=== PATIENT | female | born 1940 | race Caucasian/White ===

== ENCOUNTER 2020-01-21 10:40 | Outpatient (CLI) | payer MEDICARE, SELFPAY ==
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
--- NOTE | ~2020-01-21 | MM_ITS ---
EXAMINATION: MM screening [facility] BI w [facility] HISTORY: Screening mammogram TECHNIQUE: Craniocaudal and mediolateral oblique 3-D tomosynthesis images were obtained and synthetic 2-D images were generated. CAD analysis was submitted and interpreted. COMPARISON: 09/21/2015, 12/01/2011 BREAST PARENCHYMAL COMPOSITION: There are scattered areas of fibroglandular density. FINDINGS: There is no evidence of suspicious mass, calcification, or architectural distortion to sugg est malignancy in either breast. There has been no suspicious interval change. IMPRESSION: 1. No mammographic evidence of malignancy. 2. Recommend routine screening mammography in one year. BI-RADS Category 1: Negative Reviewed, dictated and finalized at location A.
== END 2020-01-21 10:41 | disposition home or self-care (01) ==
LOC: ANHIMG 10:58
PROVIDERS: PCP Student in an Organized Health Care Education/Training Program; Visit Provider Student in an Organized Health Care Education/Training Program
DX: Z12.31 Encounter for screening mammogram for malignant neoplasm of breast (principal); Z78.0 Asymptomatic menopausal state; M85.89 Other specified disorders of bone density and structure, multiple sites
CPT/HCPCS: 77063; 77067; 77080

== ENCOUNTER 2021-09-26 16:29 | Outpatient (CLI) | payer MEDICARE, SELFPAY ==
--- NOTE | ~2021-09-26 | US_ITS ---
EXAMINATION: US soft tissue head and neck DATE: 09/26/2021 16:59 INDICATION: Lump in neck. TECHNIQUE: Multiple grayscale and Doppler ultrasound images of the neck were obtained. COMPARISON: Thyroid ultrasound 01/13/2007 FINDINGS: There is no abnormal mass or lymphadenopathy in the patient's areas of concern in the neck. IMPRESSION: 1. No abnormal mass or lymphadenopathy in the patient's areas of concern in the neck. Reviewed, dictated and finalized at location A.
== END 2021-09-26 16:30 | disposition home or self-care (01) ==
LOC: ANHIMG 16:31
PROVIDERS: PCP Student in an Organized Health Care Education/Training Program; Visit Provider Student in an Organized Health Care Education/Training Program
DX: R22.1 Localized swelling, mass and lump, neck (principal)
CPT/HCPCS: 76536

== ENCOUNTER 2021-12-07 14:02 | Emergency (ER) | payer OTHER, MEDICARE, SELFPAY ==
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
[2021-12-07 12:19] VITALS: BP 161/88; PULSE 93; RESP 18; TEMP 36.6; O2SAT 97
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
[2021-12-07 15:58] VITALS: BP 133/78; PULSE 80; RESP 16; O2SAT 100
== END 2021-12-07 16:02 | disposition home or self-care (01) ==
PROVIDERS: Emergency Provider Emergency Medicine; PCP Student in an Organized Health Care Education/Training Program
DX: S01.112A Laceration without foreign body of left eyelid and periocular area, initial encounter (principal); E78.00 Pure hypercholesterolemia, unspecified; M85.80 Other specified disorders of bone density and structure, unspecified site; Z87.442 Personal history of urinary calculi; E89.0 Postprocedural hypothyroidism; Z90.710 Acquired absence of both cervix and uterus; M47.812 Spondylosis without myelopathy or radiculopathy, cervical region; V43.52XA Car driver injured in collision with other type car in traffic accident, initial encounter
CPT/HCPCS: 12011; 70450; 72125; 99284

== ENCOUNTER 2022-02-05 14:18 | Inpatient (IN) | payer MEDICARE, SELFPAY ==
--- NOTE | ~2022-02-05 | XR_ITS ---
EXAM: XR knee LT 3V DATE: 02/05/2022 16:47 HISTORY: knee pain and swelling, HX ARTHRITIS, PAIN SINCE TODAY, NKI . COMPARISON: 07/17/2016. FINDINGS: Normal mineralization. No fracture or dislocation. No lytic or blastic lesion. Moderate tr icompartmental arthritis. Chondrocalcinosis. No erosion or periosteal change. Soft tissues within nor mal limits. Large volume joint fluid. IMPRESSION: Large left knee joint effusion. No acute osseous finding the left knee. Reviewed, dictated and finalized at location K. IMPRESSION: Large left knee joint effusion. No acute osseous finding the left k nee.
--- NOTE | ~2022-02-05 | XR_ITS ---
EXAMINATION: XR knee LT 3V DATE: 02/06/2022 13:23 INDICATION: Left knee pain. Arthritis. TECHNIQUE: 3 views of left knee including weightbearing views were obtained. COMPARISON: Left knee radiographs 02/05/22 FINDINGS: There is lateral subluxation of patella. No fracture. There is severe osteoarthritis of pat ellofemoral compartment and mild osteoarthritis of medial and lateral compartments. There is a small knee joint effusion with loose body. IMPRESSION: 1. Severe left knee osteoarthritis. 2. Small left knee joint effusion with loose body. Reviewed, dictated and finalized at location A.
--- NOTE | ~2022-02-05 | US_ITS ---
EXAMINATION: US venous doppler [facility] DATE: 02/05/2022 15:50 INDICATION: left leg pain, swelling, and warmth . TECHNIQUE: Grayscale images without and with compression and Doppler images of the left lower extremi ty veins were obtained. COMPARISON: None FINDINGS: The left common femoral vein, profunda femoral vein, femoral vein, popliteal vein, peroneal vein, and posterior tibial veins are patent. IMPRESSION: 1. Patent left lower extremity veins. No evidence of deep venous thrombosis. Reviewed, dictated and finalized at location K.
[2022-02-05 14:36] VITALS: BP 149/84; PULSE 99; RESP 16; TEMP 37.3; O2SAT 95
[2022-02-05 14:52] LABS: Basophils Percent Auto 0.4 % (0.2-1.2); Hematocrit 44.5 % (37.0-47.0); Hemoglobin 14.7 g/dL (12.0-15.0); Immature Granulocyte Absolute 0.05 K/mm3 (0.00-0.031); Immature Granulocyte Percent A 0.5 % (0-0.5); Lymphocytes Absolute Auto 0.64 K/mm3 (0.9-3.2); Lymphocytes Percent Auto 6.8 % (18.3-44.2); Mean Corpuscular Hemoglobin 30.8 pg (26-34); Mean Corpuscular Volume 93.1 fl (80-100); Mean Platelet Volume 10.3 fl (7.4-10.4); Monocytes Percent Auto 10.4 % (2.6-8.5); Neutrophils Absolute Auto 7.7 K/mm3 (1.3-6.7); Neutrophils Percent Auto 81.9 % (45.5-73.1); Platelet Count Result 249 k/mm3 (150-375); Red Blood Count 4.78 M/mm3 (4.2-5.4); Red Cell Distribution Width 13.7 % (11.5-14.5); White Blood Count 9.4 K/mm3 (4.5-10.0)
[2022-02-05 15:03] LABS: Anion Gap 15 mmol/L (8-16); Blood Urea Nitrogen 11 mg/dL (7-17); Calcium 8.7 mg/dL (8.4-10.2); Carbon Dioxide 28 mmol/L (22-30); Chloride 96 mmol/L (98-107); Estimated CRCL calculation 53 ml/min; Estimated Glomerular Filt Rate > 60; Glucose 115 mg/dL (65-110); Sodium 139 mmol/L (137-145)
[2022-02-05 15:04] LABS: INR 1.1; Partial Thromboplastin Time 30.8 SECONDS (22.3-36.8); Prothrombin Time 13.4 Seconds (11.1-14.7)
--- NOTE | 2022-02-05 16:34 | ED.EXTPRO ---
HPI - Extremity Problem General Chief complaint: Extremity Problem,Nontraumatic Stated complaint: left knee pain and swelling Time Seen by Provider: 02/05/22 15:22 History of Present Illness HPI Narrative: Patient is an 81-year-old female with a history of hyperlipidemia, hypothyroidism presenting with left knee pain. Patient states that she will intermittently have left knee pain but that it has actually been improved over the last several weeks. 2 days ago, she noticed that her left knee was swollen and has been increasingly painful. Patient states that anytime she stands on her left leg she has excruciating pain in her left knee. States that she has been unable to ambulate by herself at home. States that she lives alone and does not have anyone to assist her. She called her PCP today who became concerned for a blood clot and told her to come in for evaluation. She denies any fevers, chest pain, shortness of breath, cough, abdominal pain, nausea or vomiting, diarrhea. Denies any recent injuries. Related Data Home Medications Medication Instructions Recorded Confirmed amlodipine 2.5 mg tablet 2.5 mg PO DAILY 11/28/21 02/05/22 antiarthritic combination no.2 900 900 mg PO DAILY 11/28/21 02/05/22 mg tablet (glucosamine-chondroitin) biotin 1,000 mcg chewable tablet 1,000 mcg PO DAILY 11/28/21 02/05/22 calcitriol 0.25 mcg capsule 0.25 mcg PO DAILY 11/28/21 02/05/22 calcium carbonate 500 mg calcium 500 mg PO TID 11/28/21 02/05/22 (1,250 mg) tablet latanoprost 0.005 % eye drops 1 drp EACH EYE 11/28/21 02/05/22 levothyroxine 100 mcg capsule 100 mcg PO DAILY 11/28/21 02/05/22 raloxifene 60 mg tablet 60 mg PO DAILY 11/28/21 02/05/22 rosuvastatin 5 mg tablet 5 mg PO 11/28/21 02/05/22 Allergies Allergy/AdvReac Type Severity Reaction Status Date / Time penicillin G Allergy Severe THROAT Verified 02/05/22 17:02 SWELLING Sulfa (Sulfonamide Allergy Severe HIVES Verified 02/05/22 17:02 Antibiotics) Penicillins Allergy Unknown Unknown Verified 02/05/22 17:02 sulfamethizole Allergy Unknown Unknown Verified 02/05/22 17:02 sulfamethoxazole Allergy Unknown Hives Verified 02/05/22 17:02 [From Bactrim] trimethoprim Allergy Unknown Unknown Verified 02/05/22 17:02 Review of Systems Review of Systems: All systems reviewed & are unremarkable except as noted in HPI and below PMFSH Past Medical History Medical History (Updated 02/07/22 @ 16:13 by Sarahi Prabhakar APRN) Functional urinary incontinence Hair loss High cholesterol Hypertension Hypothyroidism Osteopenia Vision loss Surgical History Surgical History History of extraction of renal calculus History of hysterectomy History of thyroidectomy Family History Family History Other Family history of arthritis Family history of cardiovascular disease Family history of malignant neoplasm Heart disease Hypertension Social History Social History Smoking status: Never smoker Alcohol intake: never Substance use: never Gender identity (if verbalized by the patient): Male Spiritual care concerns: No Exam Narrative: GENERAL: Well-appearing, well-nourished, and in no acute distress. HEAD: Normocephalic, atraumatic. EYES: PERRLA and EOMI. ENT: Nares clear, no rhinorrhea or epistaxis. Mucous membranes moist. NECK: Supple. CHEST: Clear to auscultation. No respiratory distress. HEART: Regular rate and rhythm. No murmur heard. Normal peripheral pulses. ABDOMEN: Soft, nontender, nondistended, normal active bowel sounds. EXTREMITIES: Normal range of motion. Left knee swollen in comparison to the right knee. There is no overlying erythema. Range of motion intact. No tenderness. SKIN: Warm, dry, no rash. NEURO: No focal deficits. Alert and oriented x3. PSYCH: Normal mood an
[2022-02-05] MEDS: NAPROXEN SODIUM 220 MG TABLET 440 MG PO (17:02)
[2022-02-05 17:43] VITALS: BP 129/86; PULSE 97; RESP 20; O2SAT 96
--- NOTE | 2022-02-05 21:42 | PM.IMHP ---
H&P: HPI History of Present Illness Date/Time: 02/05/22 21:42 Chief Complaint: left knee pain Narrative: THIS IS AN 81-YEAR-OLD FEMALE WITH PAST MEDICAL HISTORY SIGNIFICANT FOR HYPOTHYROIDISM, HYPERTENSION, DEGENERATIVE JOINT DISEASE. PATIENT PRESENTS TO THE EMERGENCY ROOM DUE TO PAIN UPON BEARING WEIGHT AND LIMITED RANGE OF MOTION OF THE LEFT KNEE WITH SWELLING THAT HAS BEEN PROGRESSIVELY GETTING WORSE OVER THE COURSE OF 3 DAYS TO THE POINT THE PATIENT REQUIRED THE HELP OF 3 PEOPLE TO GET HER OUT OF THE HOUSE AND GO TO HER PRIMARY CARE PHYSICIAN WHO IN TURN SENT HER TO THE EMERGENCY ROOM. PATIENT HAS BEEN HER USUAL STATE OF HEALTH UP UNTIL THIS, DENIES ANY FEVERS, RIGORS, CHILLS, GENERALIZED BODY ACHES MUSCLE PAIN, WEIGHT LOSS, RASH, ABDOMINAL PAIN, DIARRHEA, NAUSEA, VOMITING. IN EMERGENCY ROOM PRELIMINARY WORKUP WAS SIGNIFICANT FOR X-RAY OF THE LEFT KNEE WAS REPORTED : IMPRESSION: Large left knee joint effusion. No acute osseous finding the left knee. IN EMERGENCY ROOM PATIENT UNDERWENT ARTHROCENTESIS OF ROUGHLY 50-60 CC OF YELLOW TRANSPARENT FLUID. AFTER THIS PATIENT WAS UNABLE TO BEAR WEIGHT ON THAT LEG AND IT WAS DECIDED FOR THE PATIENT TO PLACED UNDER OBSERVATION. PATIENT HAS BEEN ADMITTED FOR FURTHER EVALUATION MANAGEMENT AND TREATMENT. Review of Systems Review of Systems: LEFT KNEE PAIN, SWELLING, LIMITED RANGE OF MOTION, UNABLE TO BEAR WEIGHT ON IT. Constitutional: Constitutional: Denies chills, Denies fatigue, Denies fever(s), Denies malaise, Denies night sweats, Denies poor appetite and Denies weakness Eyes: Eyes: Denies change in vision ENT: Denies dysphagia, Denies vertigo, Denies dizziness, Denies odynophagia and Denies disequilibrium Cardiovascular: Cardiovascular: Denies chest pain, Denies irregular heart rhythm, Denies lightheadedness, Denies palpitations and Denies dyspnea on exertion Respiratory: Respiratory: Denies chest congestion, Denies cough, Denies excessive phlegm production, Denies pain on inspiration, Denies dyspnea, Denies dyspnea on exertion and Denies wheezing Gastrointestinal: Gastrointestinal: Denies abdominal pain, Denies dyspepsia, Denies heartburn, Denies diarrhea, Denies nausea and Denies vomiting Genitourinary: Genitourinary: Denies dysuria Musculoskeletal: Musculoskeletal: Reports abnormal gait, Reports deformity, Reports arthralgias, Reports joint swelling and Reports other ( LEFT KNEE) Integumentary/Breasts: Skin/Breast: Denies rash Neurologic: Denies vertigo, Denies dizziness, Denies focal weakness, Denies radicular pain and Denies Sensory deficit (Neuro) Psychiatric: Psychiatric: Reports no additional psychiatric complaints and Reports as per HPI Endocrine: Endocrine: Denies cold intolerance, Denies fatigue, Denies flushing, Denies heat intolerance, Denies polyphagia, Denies polydipsia and Denies palpitations Hematologic/Lymphatic: Hematologic/Lymphatic: Reports no additional hematologic/lymphatic complaints and Reports as per HPI Allergic/Immunologic: Allergic/Immunologic: Reports no additional allergic/immunologic complaints and Reports as per HPI PMFSH Past Medical History Medical History (Updated 02/06/22 @ 11:39 by Yasemin Freeman PA-C) Functional urinary incontinence Hair loss High cholesterol Hypertension Hypothyroidism Osteopenia Vision loss Surgical History Surgical History History of extraction of renal calculus History of hysterectomy History of thyroidectomy Family History Family History Other Family history of arthritis Family history of cardiovascular disease Family history of malignant neoplasm Heart disease Hypertension Social History Social History Smoking status: Never smoker Alcohol intake: never Substance use: never Gender identity (if verbalized by the patie
--- NOTE | 2022-02-05 23:20 | ADMGEN ---
This patient, Indigo Maurice, was admitted to 3 Med Surg Room 320-01. Patient/family oriented to hospital policies and general routines including ID bracelet, bed and alarms, visiting hours, pain management, procedures, bathroom and other care routines, personal items, smoking policy, room service/diet, and visiting hours. Information on how to activate the Rapid Response Team has been discussed. Patient/Family are encouraged to report perceived risks to care and to ask questions if they do not understand what they are told or what they should do.
[2022-02-05 23:48] VITALS: BMI 22.1
[2022-02-06 00:27] VITALS: BP 147/80; PULSE 78; RESP 16; TEMP 37.1; O2SAT 97
[2022-02-06] MEDS: methylPREDNISolone SOD SUCC 125 MG VIAL IV PUSH (01:49)
[2022-02-06] MEDS: LATANOPROST 0.005% OP SOLN 2.5 ML BTL 1 DROP EACH EYE ×2 (01:49→20:26)
[2022-02-06] MEDS: ROSUVASTATIN 5 MG TABLET PO ×2 (01:50→20:26)
[2022-02-06 05:55] VITALS: BP 125/81; PULSE 76; RESP 18; TEMP 36.7; O2SAT 97
[2022-02-06] MEDS: LEVOTHYROXINE SODIUM 100 MCG TABLET PO (06:37)
[2022-02-06 08:00] VITALS: O2SAT 98
[2022-02-06 10:05] LABS: Hematocrit 43.9 % (37.0-47.0); Mean Corpuscular HGB Conc 31.9 g/dl (32-36); Mean Corpuscular Hemoglobin 30.6 pg (26-34); Mean Corpuscular Volume 96.1 fl (80-100); Mean Platelet Volume 10.5 fl (7.4-10.4); Platelet Count Result 249 k/mm3 (150-375); Red Blood Count 4.57 M/mm3 (4.2-5.4); Red Cell Distribution Width 13.8 % (11.5-14.5); White Blood Count 5.6 K/mm3 (4.5-10.0)
[2022-02-06 10:17] LABS: Anion Gap 11 mmol/L (8-16); Blood Urea Nitrogen 17 mg/dL (7-17); Calcium 8.5 mg/dL (8.4-10.2); Carbon Dioxide 28 mmol/L (22-30); Chloride 99 mmol/L (98-107); Estimated CRCL calculation 61 ml/min; Estimated Glomerular Filt Rate > 60; Glucose 320 mg/dL (65-110); Potassium 3.7 mmol/L (3.4-5.0); Sodium 138 mmol/L (137-145)
[2022-02-06] MEDS: predniSONE 5 MG TABLET PO (10:33)
[2022-02-06] MEDS: calcitrioL 0.25 MCG CAPSULE PO (10:33)
[2022-02-06] MEDS: amLODIPine BESYLATE 2.5 MG TABLET PO (10:33)
[2022-02-06] MEDS: RALOXIFENE HCL (*CHEMO) 60 MG TABLET PO (10:34)
[2022-02-06] MEDS: ENOXAPARIN 40 MG/0.4 ML SYRINGE SUB-Q (10:34)
[2022-02-06] MEDS: CALCIUM CARBONATE (OSCAL) 500 MG TABLET PO ×3 (10:49→17:31)
--- NOTE | 2022-02-06 11:24 | PM.IMPN ---
Progress Note: A&P Assessment and Plan (1) Effusion, left knee: Code(s): M25.462 - Effusion, left knee Status: Acute Assessment and Plan: presented with left knee pain and swelling. imaging revealed large left knee joint effusion with no acute osseous findings aspiration of left knee bursa completed in ED with 70 cc clear yellow fluid appears that specimen was not sent for further lab testing, likely due to the fact that fluid was clear yellow making infection unlikely appreciate orthopedic surgery consultation started on Medrol Dosepak per Orthopedic surgery recommendation laboratory workup including uric acid, CRP, and rheumatoid factor pending supportive care. Analgesics available as needed PT/OT eval appreciated venous Doppler negative for DVT (2) Hypertension: Code(s): I10 - Essential (primary) hypertension Status: Acute Assessment and Plan: blood pressure reviewed and has been well controlled. Last BP 125/81 continue low-dose amlodipine monitor BP trends closely (3) Hypothyroidism: Code(s): E03.9 - Hypothyroidism, unspecified Status: Acute Assessment and Plan: patient is s/p thyroidectomy continue levothyroxine Subjective Date/time seen: 02/06/22 11:24 Interval history: date of service: 02/06/2022 Indigo Maurice is an 81-year-old female with a history of incontinence, hypertension, hyperlipidemia, hypothyroidism, mild dementia who is seen in follow-up for left knee effusion. She states that her pain had been so severe at home that she was not able to get up or walk around. She was scooting around on her right leg. she states that now she is feeling a bit more comfortable. States her knee is still very sore but she has had a huge improvement in her ability to move the leg. She is not able to localize where pain is, stating it just hurts all over her knee. She denies pain in her calf, thigh, or hip. Denies numbness or tingling of her extremities. No shortness breath, cough, chest pain, palpitations, dizziness, lightheadedness. denies urinary symptoms. Reports good appetite. Review of Systems Review of Systems: All systems reviewed & are unremarkable except as noted in HPI and below Exam Narrative: General: Well-nourished, well-appearing 81-year-old female, sitting up in bed, comfortable, NARD Neuro: awake, alert and oriented x4, speech clear, no focal neuro deficits noted HEENMT: normocephalic, atraumatic, EOMI, sclerae anicteric Respiratory: clear to auscultation bilaterally, nonlabored breathing Cardio: regular rate, regular rhythm with S1-S2 Abdomen: nondistended, normoactive bowel sounds, soft, nontender to palpation Extremities: left knee wrapped in Tod bandage, left calf with 1+ edema, able to passively bend the knee 30?, bilateral varicose veins, right lower extremity without edema, no erythema, no tenderness to palpation, DP pulses 2+ bilaterally, able to wiggle toes bilaterally Skin: no rashes or lesions, warm and dry Psych: appropriate mood and affect, judgment and insight intact Objective Data Vital Signs Vital Signs: Vital Signs - 24 hr 02/05/22 14:36 02/05/22 17:43 02/06/22 00:27 Temperature 99.1 F 98.7 F Pulse Rate 99 97 78 Respiratory Rate 16 20 16 Blood Pressure 149/84 H 129/86 147/80 H Pulse Oximetry 95 96 97 Oxygen Delivery Room Air 02/06/22 05:55 02/06/22 08:00 Temperature 98.0 F Pulse Rate 76 Respiratory Rate 18 Blood Pressure 125/81 Pulse Oximetry 97 98 Oxygen Delivery Room Air Intake/Output Intake/Output: Intake & Output 02/03/22 02/04/22 02/05/22 02/06/22 23:59 23:59 23:59 23:59 Intake Total 588 Balance 588 Meds/Results Medications: Active Medications Generic Name Dose Route Start Last Admin Trade Name Freq PRN Reason Stop Dose Admin Amlodipine Besylate 2.5 mg 02/06/22 09:00 02/06/22 10:33 Amlodipine Besylate 2.
[2022-02-06 12:01] LABS: Rheumatoid Factor < 12.0 IU/ML (<12)
[2022-02-06] MEDS: methylPREDNISolone (MEDROL) DOSEPACK 4 MG TABLETS PO ×4 (12:24→20:26)
[2022-02-06 12:39] LABS: CRP 17.2 mg/dL (<1.0)
[2022-02-06 12:51] LABS: Erythrocyte Sedimentation Rate 35 mm/hr (0-20)
[2022-02-06 14:00] VITALS: BP 124/68; PULSE 85; RESP 20; TEMP 36.2; O2SAT 95
[2022-02-06 14:06] LABS: Uric Acid 4.2 mg/dL (2.5-7.5)
[2022-02-06 21:44] VITALS: BP 156/83; PULSE 78; RESP 18; TEMP 36.2; O2SAT 96
[2022-02-07 05:46] LABS: Hematocrit 40.4 % (37.0-47.0); Hemoglobin 13.2 g/dL (12.0-15.0); Mean Corpuscular HGB Conc 32.7 g/dl (32-36); Mean Corpuscular Hemoglobin 30.6 pg (26-34); Mean Corpuscular Volume 93.7 fl (80-100); Platelet Count Result 279 k/mm3 (150-375); Red Blood Count 4.31 M/mm3 (4.2-5.4); Red Cell Distribution Width 13.7 % (11.5-14.5); White Blood Count 13.8 K/mm3 (4.5-10.0)
[2022-02-07 05:52] VITALS: BP 149/77; PULSE 85; RESP 18; TEMP 36.2; O2SAT 96
[2022-02-07 06:00] LABS: Anion Gap 10 mmol/L (8-16); Blood Urea Nitrogen 20 mg/dL (7-17); Calcium 8.6 mg/dL (8.4-10.2); Carbon Dioxide 26 mmol/L (22-30); Chloride 100 mmol/L (98-107); Estimated CRCL calculation 61 ml/min; Estimated Glomerular Filt Rate > 60; Glucose 134 mg/dL (65-110); Potassium 3.8 mmol/L (3.4-5.0); Sodium 136 mmol/L (137-145)
[2022-02-07] MEDS: methylPREDNISolone (MEDROL) DOSEPACK 4 MG TABLETS PO ×4 (06:06→20:03)
[2022-02-07] MEDS: LEVOTHYROXINE SODIUM 100 MCG TABLET PO (06:06)
[2022-02-07] MEDS: LIDOCAINE HCL 1% LOCAL INJ 20 ML VIAL 4 ML INFILTRATE (07:00)
[2022-02-07] MEDS: BETAMETHASONE SOD PHOS/ACETATE 30 MG/5 ML VIAL 12 MG IM (07:00)
--- NOTE | 2022-02-07 07:12 | PM.CNOR ---
Assessment and Plan Assessment and plan (1) Left knee DJD: Code(s): M17.12 - Unilateral primary osteoarthritis, left knee Status: Acute (2) Effusion, left knee: Code(s): M25.462 - Effusion, left knee Status: Acute Assessment and Plan: This patient is a 81-year-old female was admitted the night before last for intractable left knee pain. She has a known history of osteoarthritis in the left knee. She saw Dr. Xiong on 11/25/2021 about her knee and his office and his office note is on the computer to review and he offered her a cortisone shot at that time which she declined. She had been going to physical therapy for her back and had a little bit of therapy for her knee as well. She has a history of mild episodes of soreness in her left knee off and on over many years. Her x-rays that we obtained yesterday showed on the sunrise you that she has rather advanced [id number] patellofemoral arthritis. Medial compartment shows minimal narrowing on the weight-bearing view. She developed severe pain Thursday. For the 3 or 4 weeks prior to the onset of this severe pain Thursday her left knee had been better than she can recall essentially perfect. On Thursday she developed a stomach flu and was very inactive. Thursday she did not do any activities out of the ordinary and she went to the door wants to answer of the door and other than this also was very inactive. Because of the severe pain in her left knee she went to the emergency room the night before last and in the emergency room the left knee was aspirated of 70 cc as described in the emergency room note and the fluid was clear initially and then sanguinous. Culture and synovial fluid analysis tests were ordered in the computer but the results indicate that the specimen was never collected so this is a mystery as to what happened to the culture fluid. One possible explanation would be that the fluid was simply not sent because it appeared so clear to the practitioner aspirating the knee but that is just a gas and I have no way to verify that as there is no discussion of what was done with the fluid specifically in the emergency room note. It was decided that she would be admitted because she had been having so much pain. Her white count was normal she was afebrile. I ordered a C-reactive protein and sedimentation rate yesterday and the C-reactive protein was very elevated at 17.2 normal being less than 1 and this is more than 10 times the normal rate which is highly suspicious for infection. Sedimentation rate was only mildly elevated at 35. Her white count this morning was 13.8. That might be in part related to the fact that she was started on a Medrol Dosepak yesterday. Her white count yesterday was only 5.6. She has been afebrile here in the hospital but she states she felt cold all day yesterday and today she feels hot. She has had no chills. On exam today she has a evkr-sy-snxhtkcd effusion left knee without warmth. Her range of motion was 5-120 degrees and she had no pain in the left knee with this range of motion which she indicates was vastly better than when she came in on Thursday evening night before last. She does have swelling in the left leg. She had a tight 4 in Tod wrap around the left knee only and I think the swelling her left calf is due to the tourniquet effect of the Tod wrap and the Tod wrap was of course removed. A Band-Aid covering the site where she had lateral parapatellar aspiration attempts was removed as well. She is on Lovenox for DVT prophylaxis. Impression: Patient has severe patellofemoral arthritis and painful effusion left knee that started rather suddenly on Thursday night. My plan was to give her a cortisone injection this morning but I recommended that we aspirate the knee 1st in light of the elevated white count and markedly elevated C-reactive protein. After prep with ChloraPrep, 12 cc of orange cloudy fluid were removed. It is
--- NOTE | 2022-02-07 07:58 | PM.IMPN ---
Progress Note: A&P Assessment and Plan (1) Effusion, left knee: Code(s): M25.462 - Effusion, left knee Status: Acute Assessment and Plan: 02/05/22 ED arthrocentesis, dose not appear fluid was sent for evaluation. -70 mL fluid Ortho consulted and appreciate recommendations. 02/07/22 bedside aspiration by Ortho with 12 cc of orange cloudy fluid were removed and fluid sent for analysis. CRP 12, ESR 35, Vancomycin IV pharmacy to dose started 02/07/22 until septic arthritis is ruled out. Continue medrol dosepak per Ortho recommendations. rheumatoid factor and uric acid within normal limits. PT/OT eval Venous doppler negative for DVT. Continue ice, elevation and pain control with oral analgesics. (2) Left knee DJD: Code(s): M17.12 - Unilateral primary osteoarthritis, left knee Status: Chronic Assessment and Plan: As above. (3) Hypothyroidism: Code(s): E03.9 - Hypothyroidism, unspecified Status: Chronic Assessment and Plan: Chronic, s/p thyroidectomy Continue levothyroxine (4) Hypertension: Code(s): I10 - Essential (primary) hypertension Status: Chronic Assessment and Plan: Chronic, vital signs reviewed. continue home amlodipine. Plan CODE STATUS: FULL CODE Disposition: home with home health Time Spent With Patient Time with patient: 15 - 25 minutes Subjective Date/time seen: 02/07/22 07:58 Interval history: Patient is an 81-year-old female with medical comorbidities of osteoarthritis, hypertension, hyperlipidemia, hypothyroidism, mild dementia who is seen in follow-up for left knee effusion. Patient reports her left knee is feeling much better today. She states the Orthopedic doctor drained some more fluid today. The swelling is down and she is able to move it more. Review of Systems Review of Systems: All systems reviewed & are unremarkable except as noted in HPI and below Exam Narrative: General: No acute distress, non-toxic appearing. Neuro: awake, alert and oriented x4, speech clear, no focal neuro deficits noted HEENT:? normocephalic, atraumatic, Pupils equal and round. EOM intact, sclerae anicteric, mucous membranes pink Respiratory: clear to auscultation bilaterally, nonlabored breathing Cardio: regular rate, regular rhythm with S1-S2. No murmur, gallops or rubs. Abdomen:? nondistended, normoactive bowel sounds, soft, nontender to palpation Extremities:? Left knee with mild to moderate effusion. No erythema or warmth noted. Able to extend and flex knee. Trace LLE edema. right lower extremity without edema, no erythema, no tenderness to palpation, DP pulses 2+ bilaterally, Skin: no rashes or lesions, warm and dry Psych: appropriate mood and affect, cooperative and pleasant. Objective Data Vital Signs Vital Signs: Vital Signs - 24 hr 02/06/22 08:00 02/06/22 14:00 02/06/22 21:44 Temperature 97.2 F L 97.1 F L Pulse Rate 85 78 Respiratory Rate 20 18 Blood Pressure 124/68 156/83 H Pulse Oximetry 98 95 96 Oxygen Delivery Room Air 02/07/22 05:52 Temperature 97.1 F L Pulse Rate 85 Respiratory Rate 18 Blood Pressure 149/77 H Pulse Oximetry 96 Oxygen Delivery Intake/Output Intake/Output: Intake & Output 02/04/22 02/05/22 02/06/22 02/07/22 23:59 23:59 23:59 23:59 Intake Total 2048 400 Output Total 1500 Balance 2048 -1100 Meds/Results Medications: Active Medications Generic Name Dose Route Start Last Admin Trade Name Freq PRN Reason Stop Dose Admin Acetaminophen 650 mg 02/06/22 11:42 Acetaminophen 325 Mg Tablet PO Q4H PRN mild pain Amlodipine Besylate 2.5 mg 02/06/22 09:00 02/06/22 10:33 Amlodipine Besylate 2.5 Mg Tablet PO 2.5 mg DAILY KARTHIK Administration Calcitriol 0.25 mcg 02/06/22 09:00 02/06/22 10:33 Calcitriol 0.25 Mcg Capsule PO 0.25 mcg DAILY KARTHIK Administration Calcium Carbonate 500 mg 02/06/22 09:00
[2022-02-07 08:00] VITALS: O2SAT 98
[2022-02-07] MEDS: RALOXIFENE HCL (*CHEMO) 60 MG TABLET PO (08:21)
[2022-02-07] MEDS: CALCIUM CARBONATE (OSCAL) 500 MG TABLET PO ×3 (08:22→18:24)
[2022-02-07] MEDS: amLODIPine BESYLATE 2.5 MG TABLET PO (08:23)
[2022-02-07] MEDS: calcitrioL 0.25 MCG CAPSULE PO (08:23)
[2022-02-07] MEDS: ENOXAPARIN 40 MG/0.4 ML SYRINGE SUB-Q (08:23)
[2022-02-07 08:25] LABS: Source Synovial Fluid Synovial fluid
[2022-02-07 08:26] LABS: Color Synovial Fluid Yellow (Colorless)
[2022-02-07 08:36] LABS: Lymphocytes Synovial Fluid 9 %; Macrophages Synovial Fluid 4 %; Monocytes Synovial Fluid 4 %; Neutrophils Synovial Fluid 83 % (0-25)
[2022-02-07 09:15] LABS: Hemoglobin A1C 5.1 % (<5.7)
[2022-02-07 09:35] LABS: Appearance Urine Clear (Clear); Bilirubin Urine Negative (Negative); Blood Urine Negative (Negative); Color Urine Yellow (Yellow); Glucose Urine UA Negative (Negative); Ketones Urine Negative (Negative); Leukocyte Esterase Ur Negative LEU/UL (Negative); Nitrate Urine Negative (Negative); Protein Urine Negative (Negative); Specific Grav Ur 1.015 (1.001-1.035); Urobilinogen Urine 0.2 mg/dL (<2.0); pH Urine 6.5 (5.0-9.0)
[2022-02-07 10:12] LABS: Add Urine Microscopic? NO
[2022-02-07 14:00] VITALS: BP 108/66; PULSE 88; RESP 16; TEMP 37.3; O2SAT 97
[2022-02-07 15:14] LABS: Appearance Synovial Fluid Cloudy (Clear)
[2022-02-07 20:00] VITALS: PULSE 88; RESP 16; O2SAT 97
[2022-02-07] MEDS: LATANOPROST 0.005% OP SOLN 2.5 ML BTL 1 DROP EACH EYE (20:04)
[2022-02-07] MEDS: ROSUVASTATIN 5 MG TABLET PO (20:04)
[2022-02-07 22:00] VITALS: BP 139/94; PULSE 70; RESP 16; TEMP 36.2; O2SAT 97
[2022-02-08] MEDS: methylPREDNISolone (MEDROL) DOSEPACK 4 MG TABLETS PO ×4 (05:44→19:59)
[2022-02-08] MEDS: LEVOTHYROXINE SODIUM 100 MCG TABLET PO (05:44)
[2022-02-08 06:00] VITALS: BP 144/71; PULSE 68; RESP 18; TEMP 36.1; O2SAT 97
--- NOTE | 2022-02-08 08:25 | PM.PNORT ---
Progress Note: A&P Assessment and Plan (1) Left knee DJD: Code(s): M17.12 - Unilateral primary osteoarthritis, left knee Status: Chronic Assessment and Plan: Patient underwent aspiration of the left knee yesterday. She does have severe patellofemoral osteoarthritis. The aspiration showed crystals of pseudogout. Unfortunately we cannot get a cell count as the lab has been unable to successfully run cell counts on synovial fluid as the fluid coagulates when the dilutent is added. I have spoken to the clinical laboratory medical director in detail about this issue yesterday and they are going to work on getting this rectified but it will not happen in time to utilize this information for clinical decision making. Suffice it to say that clinically she had very cloudy fluid visualized by myself and it is certain she had a high white count and of those white cells in the synovial fluid 83% were neutrophils so she does have an acute inflammatory arthritis in the left knee. She had calcium pyrophosphate crystals throughout which can certainly cause pseudogout and may be the explanation for her acute inflammatory arthritis and this is be consistent with her dramatic improvement in symptoms after less than 24 hours of oral corticosteroids. However, her C-reactive protein was markedly elevated at 17 more than 10 times of normal range and infection must be ruled out before we give her cortisone shot. Cultures are pending. Urinalysis was unremarkable. Patient is on ceftriaxone and vancomycin for broad-spectrum coverage for possible septic arthritis. Patient states her left knee is doing well. She is up in the chair she had no pain walking from the bed to the chair today and she has no pain at rest or with moving the knee so her knee is vastly improved and I attribute this to the oral corticosteroids in the Medrol Dosepak she is taking. Her improvement started well before the antibiotics were started and immediately following the initiation of the Medrol Dosepak. Impression: It is probable that patient's inflammatory arthritis is due to an attack of pseudogout which would be her 1st 1. Superimposed infection is also possible and in particular a consideration given her very high C-reactive protein level. We will see what the cultures show tomorrow. Patient when I explained what pseudogout is and the fact that it is deposition of calcium pyrophosphate crystals, she asked if the 3 calcium tablets she has been taking every day since having her thyroid removed along with the parathyroid glands might be causing her for exacerbating the pseudogout which is an excellent question and I Google this and according to the [facility] dot or [facility] site ?the risk of pseudogout is higher for people who have excessive calcium or iron in their blood or too little magnesium other medical conditions, pseudogout has also been linked to an under active thyroid gland or an overactive parathyroid gland. Patient has been referred to an senior business consultant at [facility] by her primary care physician Dr. Gomes of [place]. She has seen him once and a number of blood tests were obtained and she sees him again soon and I have advised her to discuss this with him. The question will be which is the better risk benefit taking a calcium supplementation or not considering the problems of osteoporosis versus attacks of pseudogout. I will put her calcium supplements on hold today and we will check a magnesium level. I will also check a calcium level. 30 minutes were spent in total care of this patient today. (2) Effusion, left knee: Code(s): M25.462 - Effusion, left knee Status: Acute Subjective Subjective Date/Time Seen: 02/08/22 08:25 Objective Data Vital Signs Vital Signs: Vital Signs - 24 hr 02/07/22 14:20 02/07/22 14:00 02/07/22 20:00 Temperature 37.3 C Pulse Rate 88 88 Respiratory Rate 16 16 Blood Pressure 108/66 Pulse Oximetry 97 97 Oxygen Delivery
[2022-02-08] MEDS: amLODIPine BESYLATE 2.5 MG TABLET PO (08:57)
[2022-02-08] MEDS: ENOXAPARIN 40 MG/0.4 ML SYRINGE SUB-Q (08:57)
[2022-02-08] MEDS: calcitrioL 0.25 MCG CAPSULE PO (09:00)
[2022-02-08] MEDS: RALOXIFENE HCL (*CHEMO) 60 MG TABLET PO (09:00)
[2022-02-08 09:27] LABS: Basophils Percent Auto 0.1 % (0.2-1.2); Hematocrit 42.3 % (37.0-47.0); Hemoglobin 13.4 g/dL (12.0-15.0); Immature Granulocyte Absolute 0.04 K/mm3 (0.00-0.031); Immature Granulocyte Percent A 0.4 % (0-0.5); Lymphocytes Absolute Auto 0.54 K/mm3 (0.9-3.2); Lymphocytes Percent Auto 5.3 % (18.3-44.2); Mean Corpuscular HGB Conc 31.7 g/dl (32-36); Mean Corpuscular Hemoglobin 30.4 pg (26-34); Mean Corpuscular Volume 95.9 fl (80-100); Mean Platelet Volume 9.9 fl (7.4-10.4); Monocytes Absolute Auto 0.2 K/mm3 (0.1-0.6); Monocytes Percent Auto 1.7 % (2.6-8.5); Neutrophils Absolute Auto 9.4 K/mm3 (1.3-6.7); Neutrophils Percent Auto 92.5 % (45.5-73.1); Platelet Count Result 312 k/mm3 (150-375); Red Blood Count 4.41 M/mm3 (4.2-5.4); Red Cell Distribution Width 13.9 % (11.5-14.5); White Blood Count 10.1 K/mm3 (4.5-10.0)
[2022-02-08 09:36] LABS: Calcium 8.2 mg/dL (8.4-10.2); Magnesium 2.1 mg/dL (1.6-2.3)
[2022-02-08 09:37] LABS: Anion Gap 15 mmol/L (8-16); Blood Urea Nitrogen 19 mg/dL (7-17); Calcium 8.3 mg/dL (8.4-10.2); Carbon Dioxide 26 mmol/L (22-30); Chloride 98 mmol/L (98-107); Estimated CRCL calculation 53 ml/min; Estimated Glomerular Filt Rate > 60; Glucose 212 mg/dL (65-110); Potassium 3.8 mmol/L (3.4-5.0); Sodium 139 mmol/L (137-145)
[2022-02-08 14:00] VITALS: BP 116/56; PULSE 83; RESP 20; TEMP 36.6; O2SAT 95
--- NOTE | 2022-02-08 16:07 | PM.IMPN ---
Progress Note: A&P Assessment and Plan (1) Effusion, left knee: Code(s): M25.462 - Effusion, left knee Status: Acute Assessment and Plan: 02/05/22 ED arthrocentesis, dose not appear fluid was sent for evaluation. -70 mL fluid Ortho consulted and appreciate recommendations. 02/07/22 bedside aspiration by Ortho with 12 cc of orange cloudy fluid were removed and fluid sent for analysis. CRP 12, ESR 35, Vancomycin IV pharmacy to dose started 02/07/22 until septic arthritis is ruled out. Continue medrol dosepak per Ortho recommendations. rheumatoid factor and uric acid within normal limits. PT/OT eval Venous doppler negative for DVT. Continue ice, elevation and pain control with oral analgesics. 02/07/22 synovial fluid cloudy with 83% neutrophils. Culture pending. (2) Left knee DJD: Code(s): M17.12 - Unilateral primary osteoarthritis, left knee Status: Chronic Assessment and Plan: As above. (3) Hypothyroidism: Code(s): E03.9 - Hypothyroidism, unspecified Status: Chronic Assessment and Plan: Chronic, s/p thyroidectomy Continue levothyroxine (4) Hypertension: Code(s): I10 - Essential (primary) hypertension Status: Chronic Assessment and Plan: Chronic, vital signs reviewed. continue home amlodipine. Plan CODE STATUS: FULL CODE Disposition: possible SNF Time Spent With Patient Time with patient: 15 - 25 minutes Subjective Date/time seen: 02/08/22 16:07 Interval history: Patient is an 81-year-old female with medical comorbidities of osteoarthritis, hypertension, hyperlipidemia, hypothyroidism, mild dementia who is seen in follow-up for left knee effusion. Her left knee continues to feel better. She is working with therapy. She still feels unsafe going home as she lives alone and has no family or friend support. No fever, chills, diaphoresis, SOB, paresthesia or paralysis. Review of Systems Review of Systems: All systems reviewed & are unremarkable except as noted in HPI and below Exam Narrative: General: No acute distress, non-toxic appearing. Neuro: awake, alert and oriented x4, speech clear, no focal neuro deficits noted HEENT:? normocephalic, atraumatic, Pupils equal and round. EOM intact, sclerae anicteric, mucous membranes pink Respiratory: clear to auscultation bilaterally, nonlabored breathing Cardio: regular rate, regular rhythm with S1-S2. No murmur, gallops or rubs. Abdomen:? nondistended, normoactive bowel sounds, soft, nontender to palpation Extremities:? Left knee with mild effusion. No erythema or warmth noted. Able to extend and flex knee. Trace LLE edema. right lower extremity without edema, no erythema, no tenderness to palpation, DP pulses 2+ bilaterally, Skin: no rashes or lesions, warm and dry Psych: appropriate mood and affect, cooperative and pleasant. Objective Data Vital Signs Vital Signs: Vital Signs - 24 hr 02/07/22 20:00 02/07/22 22:00 02/08/22 06:00 Temperature 97.2 F L 97 F L Pulse Rate 88 70 68 Respiratory Rate 16 16 18 Blood Pressure 139/94 H 144/71 H Pulse Oximetry 97 97 97 Oxygen Delivery Room Air 02/08/22 09:00 02/08/22 14:00 Temperature 97.8 F Pulse Rate 83 Respiratory Rate 20 Blood Pressure 116/56 L Pulse Oximetry 95 Oxygen Delivery Room Air Intake/Output Intake/Output: Intake & Output 02/05/22 02/06/22 02/07/22 02/08/22 23:59 23:59 23:59 23:59 Intake Total 2048 2160 930 Output Total 2500 1850 Balance 7918 -340 920 Meds/Results Medications: Active Medications Generic Name Dose Route Start Last Admin Trade Name Freq PRN Reason Stop Dose Admin Acetaminophen 650 mg 02/06/22 11:42 Acetaminophen 325 Mg Tablet PO Q4H PRN mild pain Amlodipine Besylate 2.5 mg 02/06/22 09:00 02/08/22 08:57 Amlodipine Besylate 2.5 Mg Tablet PO 2.5 mg DAILY KARTHIK Administration Calcitriol 0.25 mcg 02/06/22 09:0
[2022-02-08] MEDS: ROSUVASTATIN 5 MG TABLET PO (19:59)
[2022-02-08] MEDS: LATANOPROST 0.005% OP SOLN 2.5 ML BTL 1 DROP EACH EYE (20:00)
[2022-02-08 22:00] VITALS: BP 137/74; PULSE 66; RESP 14; TEMP 36.2; O2SAT 96
[2022-02-09] MEDS: methylPREDNISolone (MEDROL) DOSEPACK 4 MG TABLETS PO ×3 (05:31→22:20)
[2022-02-09] MEDS: LEVOTHYROXINE SODIUM 100 MCG TABLET PO (05:31)
[2022-02-09 06:00] VITALS: BP 152/78; PULSE 61; RESP 16; TEMP 36.1; O2SAT 96
[2022-02-09] MEDS: amLODIPine BESYLATE 2.5 MG TABLET PO (08:32)
[2022-02-09] MEDS: ENOXAPARIN 40 MG/0.4 ML SYRINGE SUB-Q (08:33)
[2022-02-09] MEDS: calcitrioL 0.25 MCG CAPSULE PO (08:33)
[2022-02-09] MEDS: RALOXIFENE HCL (*CHEMO) 60 MG TABLET PO (08:33)
[2022-02-09 09:34] LABS: Basophils Percent Auto 0.2 % (0.2-1.2); Eosinophils Percent Auto 0.2 % (0-4.4); Hemoglobin 13.7 g/dL (12.0-15.0); Immature Granulocyte Absolute 0.03 K/mm3 (0.00-0.031); Immature Granulocyte Percent A 0.5 % (0-0.5); Lymphocytes Absolute Auto 0.75 K/mm3 (0.9-3.2); Lymphocytes Percent Auto 11.3 % (18.3-44.2); Mean Corpuscular HGB Conc 32.6 g/dl (32-36); Mean Corpuscular Hemoglobin 30.6 pg (26-34); Mean Corpuscular Volume 93.8 fl (80-100); Mean Platelet Volume 10.1 fl (7.4-10.4); Monocytes Absolute Auto 0.3 K/mm3 (0.1-0.6); Monocytes Percent Auto 3.8 % (2.6-8.5); Neutrophils Absolute Auto 5.6 K/mm3 (1.3-6.7); Platelet Count Result 308 k/mm3 (150-375); Red Blood Count 4.48 M/mm3 (4.2-5.4); Red Cell Distribution Width 13.7 % (11.5-14.5); White Blood Count 6.7 K/mm3 (4.5-10.0)
--- NOTE | 2022-02-09 13:58 | PM.PNORT ---
Progress Note: A&P Assessment and Plan (1) Effusion, left knee: Code(s): M25.462 - Effusion, left knee Status: Acute Plan Patient is day 3 on the Medrol Dosepak. She continues to have no pain left knee through range of motion has just a mild effusion no tenderness she has been tolerating walking from bed to chair. Her cultures are no growth. Aspiration was drawn 2 days ago. This does not rule out infection but it is very unlikely that she has a superimposed infection on top of the pseudogout which was proven with the presence of significant calcium pyrophosphate crystals. Plan: Patient will have her antibiotic. Today and can be discharged home at any point from my standpoint. I can follow up with her in the office on as-needed basis if she has another flare-up of pseudogout in which case we can offer her a cortisone shot in the office. Of course, if the cultures come back as showing infection which is a possibility although small possibility she will need to be placed back on antibiotics possibly undergo arthroscopic surgery to clean out the infection. She has no pain now is essentially asymptomatic and combine with the no growth on the cultures projects that the likelihood she has an underlying septic arthritis in addition to the pseudogout is very low. I have written for 8 more doses of the 4 mg methylprednisolone for her to finish off the Medrol Dosepak. Subjective Subjective Date/Time Seen: 02/09/22 13:58 Objective Data Vital Signs Vital Signs: Vital Signs - 24 hr 02/08/22 14:00 02/08/22 22:00 02/09/22 06:00 Temperature 36.6 C 36.2 C L 36.1 C L Pulse Rate 83 66 61 Respiratory Rate 20 14 16 Blood Pressure 116/56 L 137/74 152/78 H Pulse Oximetry 95 96 96 Oxygen Delivery 02/09/22 08:30 Temperature Pulse Rate Respiratory Rate Blood Pressure Pulse Oximetry Oxygen Delivery Room Air Intake/Output Intake/Output: Intake & Output 02/06/22 02/07/22 02/08/22 02/09/22 23:59 23:59 23:59 23:59 Intake Total 2047 2160 1890 900 Output Total 2500 2450 1900 Balance 2048 -340 -560 -1000 Meds/Results Medications: Active Medications Generic Name Dose Route Start Last Admin Trade Name Freq PRN Reason Stop Dose Admin Acetaminophen 650 mg 02/06/22 11:42 Acetaminophen 325 Mg Tablet PO Q4H PRN mild pain Amlodipine Besylate 2.5 mg 02/06/22 09:00 02/09/22 08:32 Amlodipine Besylate 2.5 Mg Tablet PO 2.5 mg DAILY KARTHIK Administration Calcitriol 0.25 mcg 02/06/22 09:00 02/09/22 08:33 Calcitriol 0.25 Mcg Capsule PO 0.25 mcg DAILY KARTHIK Administration Enoxaparin Sodium 40 mg 02/06/22 09:00 02/09/22 08:33 Enoxaparin 40 Mg/0.4 Ml Syringe SUB-Q 40 mg DAILY KARTHIK Administration Vancomycin HCl 1,000 mg in 250 mls @ 250 mls/hr 02/07/22 08:00 02/08/22 19:58 Vancomycin 1,000 Mg/D5w 250 Ml IVPB 250 mls/hr Q18H KARTHIK Administration Latanoprost 1 drop 02/06/22 01:20 02/08/22 20:00 Latanoprost 0.005% Op Soln 2.5 Ml Btl EACH EYE 1 drop HS KARTHIK Administration Levothyroxine Sodium 100 mcg 02/06/22 06:30 02/09/22 05:31 Levothyroxine Sodium 100 Mcg Tablet PO 100 mcg DAILY@0630 KARTHIK Administration Methylprednisolone 4 mg 02/06/22 06:30 02/09/22 11:58 Methylprednisolone (Medrol) Dosepack 4 Mg Tablets PO 02/11/22 07:29 4 mg 0630,1200,2100 KARTHIK Administration Taper Antiarthritic 1 each 02/06/22 09:00 Combination No.2 [ XX 03/08/22 08:59 Glucosamine- DAILY [facility] Chondroitin] 900 Mg Tablet Biotin 1,000 Mcg 1 each 02/06/22 09:00 Tablet,Chewable XX 03/08/22 08:59 DAILY KARTHIK Raloxifene HCl 60 mg 02/06/22 09:00 02/09/22 08:33 Raloxifene Hcl (*Chemo) 60 Mg Tablet PO 60 mg DAILY KARTHIK Administration Rosuvastatin Calcium 5 mg 02/06/22 01:20 02/08/22 19:59 Rosuvastatin 5 Mg Tablet PO 5 mg HS KARTHIK Administration Radiology Results: ITS Impressions Venous Doppler Study
[2022-02-09 14:00] VITALS: BP 142/72; PULSE 97; RESP 20; TEMP 36.2; O2SAT 96
--- NOTE | 2022-02-09 16:21 | PM.IMPN ---
Progress Note: A&P Assessment and Plan (1) Effusion, left knee: Code(s): M25.462 - Effusion, left knee Status: Acute Assessment and Plan: 02/05/22 ED arthrocentesis, dose not appear fluid was sent for evaluation. -70 mL fluid Ortho consulted and appreciate recommendations. 02/07/22 bedside aspiration by Ortho with 12 cc of orange cloudy fluid were removed and fluid sent for analysis. CRP 12, ESR 35, Vancomycin IV pharmacy to dose started 02/07/22 until septic arthritis is ruled out. Continue medrol dosepak per Ortho recommendations. rheumatoid factor and uric acid within normal limits. PT/OT eval Venous doppler negative for DVT. Continue ice, elevation and pain control with oral analgesics. 02/07/22 synovial fluid cloudy with 83% neutrophils. Culture pending 02/09/22 culture and gram stain without growth to date. (2) Left knee DJD: Code(s): M17.12 - Unilateral primary osteoarthritis, left knee Status: Chronic Assessment and Plan: As above. (3) Hypothyroidism: Code(s): E03.9 - Hypothyroidism, unspecified Status: Chronic Assessment and Plan: Chronic, s/p thyroidectomy Continue levothyroxine (4) Hypertension: Code(s): I10 - Essential (primary) hypertension Status: Chronic Assessment and Plan: Chronic, vital signs reviewed. continue home amlodipine. Plan CODE STATUS: FULL CODE Disposition: home with home health versus SNF, awaiting safe disposition. Time Spent With Patient Time with patient: 15 - 25 minutes Subjective Date/time seen: 02/09/22 16:21 Interval history: Patient is an 81-year-old female with medical comorbidities of osteoarthritis, hypertension, hyperlipidemia, hypothyroidism, mild dementia who is seen in follow-up for left knee effusion. Her left knee continues to feel better. She is complaining of urinary incontinence that has occurred in the past, but worsened yesterday. She does not want to take any medications. Review of Systems Review of Systems: All systems reviewed & are unremarkable except as noted in HPI and below Exam Narrative: General: No acute distress, non-toxic appearing. Neuro: awake, alert and oriented x4, speech clear, no focal neuro deficits noted HEENT:? normocephalic, atraumatic, Pupils equal and round. EOM intact, sclerae anicteric, mucous membranes pink Respiratory: clear to auscultation bilaterally, nonlabored breathing Cardio: regular rate, regular rhythm with S1-S2. No murmur, gallops or rubs. Abdomen:? nondistended, normoactive bowel sounds, soft, nontender to palpation Extremities:? Left knee without erythema or warmth noted. Able to extend and flex knee. Trace LLE edema. right lower extremity without edema, no erythema, no tenderness to palpation, DP pulses 2+ bilaterally, Skin: no rashes or lesions, warm and dry Psych: appropriate mood and affect, cooperative and pleasant. Objective Data Vital Signs Vital Signs: Vital Signs - 24 hr 02/08/22 22:00 02/09/22 06:00 02/09/22 08:30 Temperature 97.1 F L 96.9 F L Pulse Rate 66 61 Respiratory Rate 14 16 Blood Pressure 137/74 152/78 H Pulse Oximetry 96 96 Oxygen Delivery Room Air 02/09/22 14:00 Temperature 97.1 F L Pulse Rate 97 Respiratory Rate 20 Blood Pressure 142/72 H Pulse Oximetry 96 Oxygen Delivery Intake/Output Intake/Output: Intake & Output 02/06/22 02/07/22 02/08/22 02/09/22 23:59 23:59 23:59 23:59 Intake Total 2048 2160 1890 900 Output Total 2500 2450 1900 Balance 2048 -340 -560 -1000 Meds/Results Medications: Active Medications Generic Name Dose Route Start Last Admin Trade Name Freq PRN Reason Stop Dose Admin Acetaminophen 650 mg 02/06/22 11:42 Acetaminophen 325 Mg Tablet PO Q4H PRN mild pain Amlodipine Besylate 2.5 mg 02/06/22 09:00 02/09/22 08:32 Amlodipine Besylate 2.5 Mg Tablet PO 2.5 mg DAILY KARTHIK Administration Calcitrio
[2022-02-09 20:00] VITALS: O2SAT 96
[2022-02-09 22:00] VITALS: BP 132/87; PULSE 68; RESP 14; TEMP 36.4; O2SAT 96
[2022-02-09] MEDS: ROSUVASTATIN 5 MG TABLET PO (22:20)
[2022-02-09] MEDS: LATANOPROST 0.005% OP SOLN 2.5 ML BTL 1 DROP EACH EYE (22:21)
[2022-02-10 06:00] VITALS: BP 154/78; PULSE 61; RESP 14; TEMP 36.6; O2SAT 97
[2022-02-10] MEDS: LEVOTHYROXINE SODIUM 100 MCG TABLET PO (06:08)
[2022-02-10] MEDS: methylPREDNISolone (MEDROL) DOSEPACK 4 MG TABLETS PO (06:08)
[2022-02-10 06:29] LABS: Estimated CRCL calculation 61 ml/min; Estimated Glomerular Filt Rate > 60
[2022-02-10] MEDS: amLODIPine BESYLATE 2.5 MG TABLET PO (08:20)
[2022-02-10] MEDS: RALOXIFENE HCL (*CHEMO) 60 MG TABLET PO (08:20)
[2022-02-10] MEDS: calcitrioL 0.25 MCG CAPSULE PO (08:20)
[2022-02-10] MEDS: ENOXAPARIN 40 MG/0.4 ML SYRINGE SUB-Q (08:21)
--- NOTE | 2022-02-10 10:30 | PM.DS ---
DS: Admitting Diagnosis Discharge Date 02/10/22 1030 Admitting Diagnosis Left knee effusion DS: Discharge Diagnosis Discharge Diagnosis (1) Effusion, left knee: Code(s): M25.462 - Effusion, left knee Status: Acute Assessment and Plan: 02/05/22 ED arthrocentesis, dose not appear fluid was sent for evaluation. -70 mL fluid Ortho consulted and appreciate recommendations. 02/07/22 bedside aspiration by Ortho with 12 cc of orange cloudy fluid were removed and fluid sent for analysis. CRP 12, ESR 35, Vancomycin IV pharmacy to dose started 02/07/22 until septic arthritis is ruled out. Continue medrol dosepak per Ortho recommendations. rheumatoid factor and uric acid within normal limits. PT/OT eval Venous doppler negative for DVT. Continue ice, elevation and pain control with oral analgesics. 02/07/22 synovial fluid cloudy with 83% neutrophils. Culture pending 02/09/22 culture and gram stain without growth to date. (2) Left knee DJD: Code(s): M17.12 - Unilateral primary osteoarthritis, left knee Status: Chronic Assessment and Plan: As above. (3) Hypothyroidism: Code(s): E03.9 - Hypothyroidism, unspecified Status: Chronic Assessment and Plan: Chronic, s/p thyroidectomy Continue levothyroxine (4) Hypertension: Code(s): I10 - Essential (primary) hypertension Status: Chronic Assessment and Plan: Chronic, vital signs reviewed. continue home amlodipine. DS: Summary Hospital Course Hospital Course: Patient is an 81-year-old female with medical comorbidities of osteoarthritis, hypertension, hyperlipidemia, hypothyroidism, mild dementia who is seen in follow-up for left knee effusion. Orthopedics was consulted and patient had aspiration done to her left knee. Cultures were sent with no growth. Patient received a full course of IV vancomycin. White blood cell count is back to normal at 6.7. Patient has been working with PT and OT and is being well with walking. Patient had venous Dopplers negative for DVT. Since admission patient has been talking about her incontinence his stay that has been worse than normal. She stated that she has been dribbling in her depends more than she normally does. Patient also described her urgency and frequency while talking to her. UA was collected, does not appear to be infectious. Patient is ready to go and she is aware she is going to [facility] for further rehab. She currently denies any chest pain, shortness of breath, nausea, vomiting, diarrhea, constipation, weakness or fatigue. Labs and vital signs are stable for discharge at this time. Status at Discharge Functional status at discharge: uses cane/walker Overall status at discharge: patient is progressing back to baseline Time Spent with Patient Time attestation: Total time spent providing and/or coordinating discharge services: 37 minutes Time spent: Greater than 30 minutes Specific discharge activities: Diagnostic testing, chart review, developing a treatment plan, education, care coordination documentation, physical exam, result review Exam Const: General: comfortable, no acute distress, well developed, alert, awake and anxious Nutritional Appearance: average body habitus Orientation/consciousness: oriented to person, oriented to place, oriented to time and patient oriented x3 HENMT: Head: normal to inspection, normocephalic and atraumatic Ears: hearing grossly normal bilaterally Face and sinus: normal facial exam Eyes: General: appearance normal, both eyes and all related structures Pupils: Equal, round and reactive pupils present EOM: EOMs intact bilaterally Neck: Neck: full ROM, no lymphadenopathy and no JVD Thyroid: thyroid normal Lymphatic: no lymphadenopathy noted Resp: Effort & Inspection: normal respiratory effort and able to speak in complete sentences Auscultation: clear to auscultation bilaterally Cardio: Jugular jluis
[2022-02-10 11:27] LABS: Add Urine Microscopic? YES; Appearance Urine Cloudy (Clear); Bilirubin Urine Negative (Negative); Blood Urine Negative (Negative); Color Urine Yellow (Yellow); Glucose Urine UA Negative (Negative); Ketones Urine Negative (Negative); Leukocyte Esterase Ur Negative LEU/UL (NEGATIVE); Nitrate Urine Negative (Negative); Protein Urine Negative (Negative); RBC Urine 0-2 /hpf (0-2); Squamous Epithelial Cell Urine Few /hpf (Few); Urobilinogen Urine Negative mg/dL (<2.0); WBC Urine 0-3 /hpf (0-3)
--- NOTE | 2022-02-10 12:41 | PM.PNORT ---
Subjective Subjective Date/Time Seen: 02/10/22 12:41 Cx total show no growth, pt may follow up on outpt status Objective Data Vital Signs Vital Signs: Vital Signs - 24 hr 02/09/22 14:00 02/09/22 22:00 02/09/22 20:00 Temperature 36.2 C L 36.4 C Pulse Rate 97 68 Respiratory Rate 20 14 Blood Pressure 142/72 H 132/87 Pulse Oximetry 96 96 96 Oxygen Delivery Room Air 02/10/22 06:00 02/10/22 08:20 Temperature 36.6 C Pulse Rate 61 Respiratory Rate 14 Blood Pressure 154/78 H Pulse Oximetry 97 Oxygen Delivery Room Air Intake/Output Intake/Output: Intake & Output 02/07/22 02/08/22 02/09/22 02/10/22 23:59 23:59 23:59 23:59 Intake Total 2160 1890 1750 700 Output Total 2500 2450 3000 1300 Balance -340 -560 -1250 -600 Meds/Results Medications: Active Medications Generic Name Dose Route Start Last Admin Trade Name Orly PRN Reason Stop Dose Admin Acetaminophen 650 mg 02/06/22 11:42 Acetaminophen 325 Mg Tablet PO Q4H PRN mild pain Amlodipine Besylate 2.5 mg 02/06/22 09:00 02/10/22 08:20 Amlodipine Besylate 2.5 Mg Tablet PO 2.5 mg DAILY KARTHIK Administration Calcitriol 0.25 mcg 02/06/22 09:00 02/10/22 08:20 Calcitriol 0.25 Mcg Capsule PO 0.25 mcg DAILY KARTHIK Administration Enoxaparin Sodium 40 mg 02/06/22 09:00 02/10/22 08:21 Enoxaparin 40 Mg/0.4 Ml Syringe SUB-Q 40 mg DAILY KARTHIK Administration Latanoprost 1 drop 02/06/22 01:20 02/09/22 22:21 Latanoprost 0.005% Op Soln 2.5 Ml Btl EACH EYE 1 drop HS KARTHIK Administration Levothyroxine Sodium 100 mcg 02/06/22 06:30 02/10/22 06:08 Levothyroxine Sodium 100 Mcg Tablet PO 100 mcg DAILY@0630 KARTHIK Administration Methylprednisolone 4 mg 02/06/22 06:30 02/10/22 06:08 Methylprednisolone (Medrol) Dosepack 4 Mg Tablets PO 02/11/22 07:29 4 mg 0630,2100 KARTHIK Administration Taper Antiarthritic 1 each 02/06/22 09:00 Combination No.2 [ XX 03/08/22 08:59 Glucosamine- DAILY [facility] Chondroitin] 900 Mg Tablet Biotin 1,000 Mcg 1 each 02/06/22 09:00 Tablet,Chewable XX 03/08/22 08:59 DAILY KARTHIK Raloxifene HCl 60 mg 02/06/22 09:00 02/10/22 08:20 Raloxifene Hcl (*Chemo) 60 Mg Tablet PO 60 mg DAILY KARTHIK Administration Rosuvastatin Calcium 5 mg 02/06/22 01:20 02/09/22 22:20 Rosuvastatin 5 Mg Tablet PO 5 mg HS KARTHIK Administration Radiology Results: ITS Impressions Venous Doppler Study 02/05/22 15:51 IMPRESSION: 1. Patent left lower extremity veins. No evidence of deep venous thrombosis. Knee X-Ray 02/06/22 13:33 IMPRESSION: 1. Severe left knee osteoarthritis. 2. Small left knee joint effusion with loose body. Labs Labs: Laboratory Results - last 24 hr 02/09/22 02/10/22 02/10/22 13:34 05:42 10:46 Creatinine 0.60 L Estim Creat Clear Calc 61 Estimated GFR > 60 Urine Color Yellow Urine Appearance Cloudy H Urine pH 6.0 Ur Specific [place] 1.020 Urine Protein Negative Urine Glucose (UA) Negative Urine Ketones Negative Ur Blood (Man) Negative Urine Nitrate Negative Urine Bilirubin Negative Urine Urobilinogen Negative Ur Leukocyte Esterase Negative Urine RBC 0-2 Urine WBC 0-3 Ur Squamous Epith Cells Few Vancomycin Trough 6.0 L
[2022-02-10 14:00] VITALS: BP 131/76; PULSE 88; RESP 20; TEMP 36.9; O2SAT 97
[2022-02-10 14:24] LABS: EDCOVIDSCREEN Negative (Negative)
== END 2022-02-10 15:35 | DRG 554 ==
LOC: ANHED 15:22 → ANH3MEDSUR 22:33
PROVIDERS: Emergency Medicine; Nurse Practitioner Family; Orthopaedic Surgery; Physician Assistant; Admitting Provider Internal Medicine; Emergency Provider Emergency Medicine; PCP Student in an Organized Health Care Education/Training Program; Visit Provider Nurse Practitioner
DX: M11.262 Other chondrocalcinosis, left knee (principal); M25.462 Effusion, left knee; M17.12 Unilateral primary osteoarthritis, left knee; E89.0 Postprocedural hypothyroidism; R39.81 Functional urinary incontinence; E78.5 Hyperlipidemia, unspecified; I10 Essential (primary) hypertension; H54.7 Unspecified visual loss; F03.90 Unspecified dementia, unspecified severity, without behavioral disturbance, psychotic disturbance, mood disturbance, and anxiety; Z20.822 Contact with and (suspected) exposure to COVID-19; Z79.899 Other long term (current) drug therapy; Z88.0 Allergy status to penicillin; Z88.2 Allergy status to sulfonamides; Z88.1 Allergy status to other antibiotic agents
CPT/HCPCS: 20610; 36415; 73562; 80048; 80202; 81001; 81003; 82310; 82565; 82945; 83036; 83735; 84157; 84550; 85025; 85027; 85610; 85652; 85730; 86140; 86430; 87070; 87075; 87205; 87426; 89051; 89060; 93971; 96365; 96372; 96375; 97161; 97165; 99285; A9270; C9803; G0378; J0696; J0702; J1650; J2930; J3370; J7512

== ENCOUNTER 2022-03-27 13:15 | Outpatient (CLI) | payer MEDICARE, SELFPAY ==
--- NOTE | ~2022-03-27 | MR_ITS ---
EXAMINATION: MR brain/brain stem wo/w con DATE: 03/27/2022 14:11 INDICATION: Mild cognitive impairment TECHNIQUE: Magnetic resonance imaging (MRI) of the brain and brainstem was performed without and with 12 cc of MultiHance intravenous contrast. Sequences included sagittal and axial T1-weighted SE, axia l diffusion-weighted FS SE, axial T2*-weighted GRE, axial T2-weighted FLAIR Propeller, and axial T2-w eighted Propeller. Apparent diffusion coefficient (ADC) maps were created. COMPARISON: CT dated 12/07/2021. FINDINGS: Generalized atrophy. There are scattered moderate-severe periventricular and subcortical wh ite matter changes, most likely related to small vessel ischemic disease (microangiopathy). No acute intracranial hemorrhage, infarction, mass or mass effect. No ventriculomegaly or midline shift. No ab normal contrast enhancement. Paranasal sinuses are unremarkable. Structures of the posterior fossa in cluding 7/8th cranial nerve complexes are normal. No abnormal contrast enhancement. IMPRESSION: 1. No acute intracranial abnormality. 2: Chronic age-related findings. Reviewed, dictated and finalized at location B.
== END 2022-03-27 13:16 | disposition home or self-care (01) ==
LOC: ANHIMG 13:20
PROVIDERS: PCP Student in an Organized Health Care Education/Training Program; Visit Provider Internal Medicine
DX: G31.84 Mild cognitive impairment of uncertain or unknown etiology (principal)
CPT/HCPCS: 70553; A9577

== ENCOUNTER 2023-05-17 13:53 | Emergency (ER) | payer MEDICARE, SELFPAY ==
[2023-05-17 14:13] VITALS: BP 148/80; PULSE 80; RESP 16; TEMP 36.8; O2SAT 98
--- NOTE | 2023-05-17 14:26 | ED.SKABFB ---
HPI - Skin/Abscess/Foreign Bdy General Chief complaint: Skin/Abscess/Foreign Body Stated complaint: check for infection spots on nose Time Seen by Provider: 05/17/23 14:33 Source: patient and RN notes reviewed Mode of arrival: ambulatory Limitations: no limitations History of Present Illness HPI narrative: 82-year-old female presents concern for to postop wounds on her face. She reports she had 2 areas removed from her face at the immigration lawyer about 3 days ago. She was instructed to use Polysporin which she has been doing daily, she has also been keeping the areas bandaged. She reports she was concern with drainage a Band-Aid morning. She would like clarification of wound care instructions MD complaint: other (wound) Related Data Home Medications Medication Instructions Recorded Confirmed antiarthritic combination no.2 900 900 mg PO DAILY 11/28/21 05/17/23 mg tablet (glucosamine-chondroitin) biotin 1,000 mcg chewable tablet 1,000 mcg PO DAILY 11/28/21 05/17/23 calcitriol 0.25 mcg capsule 0.25 mcg PO DAILY 11/28/21 05/17/23 calcium carbonate 500 mg calcium 500 mg PO TID 11/28/21 05/17/23 (1,250 mg) tablet latanoprost 0.005 % eye drops 1 drp EACH EYE HS 11/28/21 05/17/23 levothyroxine 100 mcg capsule 100 mcg PO DAILY 11/28/21 05/17/23 raloxifene 60 mg tablet 60 mg PO DAILY 11/28/21 05/17/23 rosuvastatin 5 mg tablet 5 mg PO HS 11/28/21 05/17/23 amlodipine 5 mg tablet 5 mg PO DAILY 05/17/23 05/17/23 cyanocobalamin (vitamin B-12) 1,000 mcg PO DAILY 05/17/23 05/17/23 1,000 mcg tablet donepezil 10 mg tablet 10 mg PO DAILY 05/17/23 05/17/23 mirabegron 25 mg tablet,extended 25 mg PO DAILY 05/17/23 05/17/23 release 24 hr (Myrbetriq) Allergies Allergy/AdvReac Type Severity Reaction Status Date / Time penicillin G Allergy Severe THROAT Verified 05/17/23 14:16 SWELLING Sulfa (Sulfonamide Allergy Severe HIVES Verified 05/17/23 14:16 Antibiotics) Penicillins Allergy Unknown Unknown Verified 05/17/23 14:16 sulfamethizole Allergy Unknown Unknown Verified 05/17/23 14:16 sulfamethoxazole Allergy Unknown Hives Verified 05/17/23 14:16 [From Bactrim] trimethoprim Allergy Unknown Unknown Verified 05/17/23 14:16 Review of Systems Review of Systems: CONSTITUTIONAL: Denies malaise, chills, sweats, or fever. SKIN: Reports to postop wound areas on her face All systems reviewed & are unremarkable except as noted in HPI and below PMFSH Past Medical History Medical History (Updated 05/17/23 @ 14:43 by Jaja Stanley NP) Functional urinary incontinence Hair loss High cholesterol Hypertension Hypothyroidism Osteopenia Vision loss Surgical History Surgical History History of extraction of renal calculus History of hysterectomy History of thyroidectomy Family History Family History Other Family history of arthritis Family history of cardiovascular disease Family history of malignant neoplasm Heart disease Hypertension Social History Social History Smoking status: Never smoker Alcohol intake: never Substance use: never Occupation/Education: retired Gender identity (if verbalized by the patient): Male Spiritual care concerns: No Comments At time of signature, agree with nursing past medical, surgical, social and family history. There is no relevant family history pertinent to the presenting complaint Exam Narrative: GENERAL: Well-appearing, well-nourished, and in no acute distress. HEAD: Normocephalic, atraumatic. EYES: PERRLA, conjunctivae clear, and EOMI. ENT: Mucous membranes moist. NECK: Supple. No lymphadenopathy CHEST: Clear to auscultation. No respiratory distress. HEART: Regular rate and rhythm. SKIN: Warm, dry. One scabbed wound approximately 1 cm long under the left eye with scab, I wound
== END 2023-05-17 14:47 | disposition home or self-care (01) ==
PROVIDERS: Emergency Provider Nurse Practitioner; PCP Student in an Organized Health Care Education/Training Program
DX: Z48.01 Encounter for change or removal of surgical wound dressing (principal); E78.00 Pure hypercholesterolemia, unspecified; I10 Essential (primary) hypertension; E89.0 Postprocedural hypothyroidism; M81.0 Age-related osteoporosis without current pathological fracture
CPT/HCPCS: 99211; G0463

== ENCOUNTER 2023-09-16 14:37 | Outpatient (CLI) | payer MEDICARE, SELFPAY ==
--- NOTE | ~2023-09-16 | DEXA_ITS ---
Bone Density Report Name: CELINA MOROCHO Age: 83 Sex: Female Ethnicity: White Date of : 1940 Indication: hyperparathyroidism; parental hip fracture; height loss; cancer; hysterectomy; postmenopausal Referring Provider: HERNÁN, LINDSAY Study: Bone densitometry was performed. Exam Date: September 16, 2023 Accession number: [id number] Bone Density: Region BMD T-score Z-score Classification AP Spine(L1-L4) 1.025 -0.2 2.6 Normal Femoral Neck (Left) 0.700 -1.3 1.1 Osteopenia Total Hip (Left) 0.808 -1.1 1.1 Osteopenia Femoral Neck (Right) 0.650 -1.8 0.6 Osteopenia Total Hip (Right) 0.809 -1.1 1.1 Osteopenia Total Hip Mean 0.809 -1.1 1.1 Osteopenia World Health Organization criteria for BMD impression classify patients as: Normal (T-score at or above -1.0), Osteopenia (T-score between -1.0 and -2.5), or Osteoporosis (T-score at or below -2.5). 10-year Fracture Risk(1): Major Osteoporotic Fracture 26% Hip Fracture 16% Reported Risk Factors: [place] (), Neck BMD=0.650, BMI=23.2, parental fracture (1) FRAX(R) Version 3.08. Fracture probability calculated for an untreated patient. Fracture probability may be lower if the patient has received treatment. Clinical Information Provided by Patient: Parent has had a hip fracture Has used the following medications: Calcium Has the following medical conditions: Cancer, Hyperparathyroidism, Hysterectomy Patient maximum height was 68.5 No regular weight bearing exercise Drinks caffeinated beverages Onset of menses at age 12 Number of children 1 Impression: The patient has low bone mass, based on the Right Femoral Neck T-score. The patient has an estimated ten-year risk of hip fracture of 16% and an estimated ten-year risk of major fracture of 26%, based on the WHO FRAX algorithm. The patient has risk factors, including: parental hip fracture. Discussion: BONE DENSITY IS LOW AT ONE OR MORE SKELETAL SITES. THE PATIENT'S BMD AND CLINICAL RISK FACTORS CONTRIBUTE TO THIS PATIENT'S HIGH RISK OF FRACTURE. This patient's lowest T-score is low at one or more skeletal sites. It meets the World Health Organization's (WHO) criteria for ?low bone mass? (T-score between -1.0 and -2.5). The patient's 10-year risk of hip fracture and 10 year risk of a major osteoporotic fracture as calculated by FRAX exceeds the threshold where pharmacological therapy is recommended by the National Osteoporosis Foundation (NOF). However, all treatment decisions require clinical judgment and consideration of individual patient factors, including patient preferences, comorbidities, previous drug use, risk factors not captured in the FRAX model (e.g., frailty, falls, vitamin D deficiency, increased bone turnover, interval significant decline in bone density) and po
== END 2023-09-16 14:38 | disposition home or self-care (01) ==
LOC: ANHIMG 14:44
PROVIDERS: PCP Student in an Organized Health Care Education/Training Program; Visit Provider Student in an Organized Health Care Education/Training Program
DX: M85.89 Other specified disorders of bone density and structure, multiple sites (principal); N95.0 Postmenopausal bleeding; E89.2 Postprocedural hypoparathyroidism; E89.0 Postprocedural hypothyroidism; I10 Essential (primary) hypertension; Z78.0 Asymptomatic menopausal state
CPT/HCPCS: 77080

== ENCOUNTER 2024-12-02 19:26 | Emergency (ER) | payer MEDICARE, SELFPAY ==
--- NOTE | ~2024-12-02 | CT_ITS ---
CT brain wo con Ordering provider: Luis Rodgers MD History: 84 years Female with . fall, head injury . Comparison: December 07, 2021 Technique: CT of the head without contrast. Radiation reduction technique utilized.The dose-length pr oduct was 681 mGy-cm. FINDINGS: BRAIN PARENCHYMA AND CSF SPACES: Mild leukoaraiosis and diffuse cortical atrophy. Mild atheromatous d isease. 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 No mid line shift, mass effect or hemorrhage. The brain parenchyma and CSF spaces are otherwise normal. VISUALIZED PARANASAL SINUSES: Well aerated. MASTOIDS: Well aerated. BONES: The bones appear intact. SOFT TISSUES: Visualized nasopharynx is normal. Superficial soft tissues are normal. IMPRESSION: No acute intracranial findings. Reviewed, dictated and finalized at location A.
--- OUTSIDE RECORDS SUMMARY | 2024-12-02 19:28 | XMS_ITS | Clinical Summary ---
Author Organization [facility] Address [address] [address] Care Team Providers Care Float Nurse Name Role Phone Unavailable Primary Care Provider Unavailabl e Source Comments [facility],non-owned Affiliates and Associated Physician Practices is amultiple site organization consisting of ambulatory clinics and hospital sitesin [place], [place], [place] and [place]. This disclosure is being madepursuant to the Care Everywhere program and may not contain all information available regarding this patient. Last updated 18.[facility] [employer] Social History Tobacco Use Types Packs/Day Years Used Date Smoking Tobacco: Never Assessed Comments Unknown Sex and Gender Information Value Date Recorded Sex Assigned at Not on file Legal Sex Female 6:05 PM [employer] Gender Identity Not on file Sexual Orientation Not on file Plan of Treatment Health Maintenance Due Date Last Done Comments BONE DENSITY TESTING 1940 MEDICARE AWV 12 MONTHS 1940 DTAP/TDAP/TD VACCINES (1 - Tdap) 1959 PNEUMOCOCCAL VACCINE 50+ (1 of 1 - PCV) 1990 ZOSTER VACCINE (1 of 2) 1990 Respiratory Syncytial Virus (RSV) Vaccine Pt: or over 60 yrs (1 - 1-dose 75+ series) 2015 COVID-19 VACCINE ( - 2023-2 5 season) 2024 DEPRESSION SCREENING 06/01/2024 INFLUENZA VACCINE (Season Ended) 2025 HEPATITIS B VACCINE Aged Out No longe r eligible based on patient's age to complete this topic HIB VACCINE Aged Out No longer eligi ble based on patient's age to complete this topic HPV VACCINE Aged Out No longer eligi ble based on patient's age to complete this topic MENINGOCOCCAL (Group B) VACC INE SHARED DECISION-MAKING Aged Out No longer eligibl e based on patient's age to complete this topic MENINGOCOCCAL GROUPS A/C/Y/W VACCINE Aged Out No longer eligible b ased on patient's age to complete this topic Insurance MEDICARE AET
--- OUTSIDE RECORDS SUMMARY | 2024-12-02 19:28 | XMS_ITS | Referral Summary ---
Author Organization [facility] [address] [place] [id number] Care Team Providers Care Wood Form Builder Name Role Phone [email or web address] Red Fernandez DO Primary Care Provide r Allergies Active Allergy Reactions Criticality Noted Date Comments Penicillins Anaphylaxis Reaction: ANAPHYLAXIS, Sulfamethoxazole Hives Reaction: Hives, Sulfamethoxazole-Trimethoprim Hives Medium 2019 Trimethoprim Hives Reaction: Hives, Medications amLODIPine (NORVASC) 5 mg tablet 0 Active bimatoprost (LUMIGAN) 0.01 % ophthalmic drops Administer 1-2 drops into affected eye(s) daily Active biotin 1 mg tablet Take 1 tablet (1,000 mcg total) by mouth daily Active nutritional supplements liquid Take 8 oz by mouth daily Active levothyroxine (SYNTHROID) 100 mcg tablet Take 1 tablet (100 mcg total) by mouth space systems operations manager before breakfast 90 tablet 3 1 Active calcitRIOL (ROCALTROL) 0.25 mcg capsule TAKE 1 CAPSULE(0.25 MCG) BY MOUTH DAILY 90 capsule 1 Active glucosamine HCl/chondroitin duong (GLUCOSAMINE-CHO NDROITIN ORAL) 0 Active raloxifene (EVISTA) 60 mg tablet 3 Active rosuvastatin (CRESTOR) 5 mg tablet TAKE 1 TABLET(5 MG) BY MOUTH EVERY NIGHT AT BEDTIME 2 Active amLODIPine (NORVASC) 2.5 mg tablet 1 Active calcium carbonate (Tums E-X) 750 mg (300 mg elemental) tablet,chewable 9 Active Myrbetriq 25 mg tablet extended release 24 hr Take 1 tablet (25 mg total) by mouth daily 3 Active donepeziL (ARICEPT) 10 mg tablet Take 1 tablet (10 mg total) by mouth daily 3 Active latanoprost (XALATAN) 0.005 % ophthalmic solution INSTILL 1 DROP INTO BOTH EYES EVERY NIGHT AT BEDTIME Active cyanocobalamin (Vitamin B-12) 1,000 mcg tablet Take 1 tablet (1,000 mcg total) by mouth daily 3 Active Active Problems Problem Noted Date Diagnosed Date Osteopenia of multiple sites 03/01/2020 Assessment & Plan (08/30/2020 12:23 PM CDT): Fall precautions and weight-bearing exercise were discussed The patient will try to get me the report of the bone density done last year. She probably be able to come off of the Evista, after so many years on the medication Assessment & Plan (03/02/2020 2:35 PM CDT): I discussed with the patient importance of daily weight-bearing exercise, avoiding falls and and calcium and vitamin-D intake Evista is a medication that works as a metabolic agent for the bone as well as anti estrogen modulator, for breast cancer prevention Unfortunately I do not have the results of the last bone density at this time ( I have requested that report ) , but if she is within osteopenic range ( with a low T score ) I would recommend for her to continue Evista Postsurgical hypoparathyroidism 03/01/2020 Assessment & Plan (08/30/2020 12:22 PM CDT): Continue Rocaltrol and calcium at current dose Assessment & Plan (03/02/2020 2:22 PM CDT): Continue Rocaltrol and calcium carbonate Goal of treatment is keep the calcium within normal limits, avoiding hypercalciuria Will check 24 hour urine calcium Postoperative hypothyroidism 10/15/2013 Overview (09/05/2016): POSTSURGICAL HYPOTHYROID Assessment & Plan (08/30/2020 12:21 PM CDT): Continue levothyroxine 100 mcg daily Importance of taking the medication on an empty stomach, around 2 hours apart from food or any other medications also discussed Assessment & Plan (03/02/2020 2:36 PM CDT): I have recommended the patient to stay on levothyroxine 100 mcg daily With history of osteopenia, keeping the TSH to low will increase the risk of bone density loss Resolved Problems Problem Noted Date Diagnosed Date Resolved Date 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 10/15/2013 03/01/2020 Overview (09/05/2016): TOX MULTNOD GOIT NO RANI 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 03/01/2020 Overview (09/05/2016): NONTOX MULTINODUL GOITER Social History Tobacco Use Types Packs/Day Years Used Date Smoking Tobacco: Never Smokeless Tobacco: Never Alcohol Use Standard Drinks/Week Comments Yes 0 (1 standard drink = 0.6 oz pur e alcohol) PHQ-2 Answer Date Recorded PHQ-2 Total Score (If total score is 3 or more points, staff should administer the PHQ-9) 0 08/30/2020 Comments Unknown Sex and Gender Information Value Date Recorded Sex Assigned at Not on file Legal Sex Female 12:27 AM 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 Gender Identity Female 11/11/2020 3:25 PM CDT Sexual Orientation Not on file Last Filed Vital Signs Vital Sign Reading Time Taken Comments Blood Pressure 130/80 08/30/2020 10:25 AM CDT Pulse 88 08/30/2020 10:25 AM CDT Temperature - - Respiratory Rate 12 08/30/2020 10:25 AM CDT Oxygen Saturation - - Inhaled Oxygen Concentration - - Weight 61.2 kg (135 lb) 10/22/2023 11:31 AM CDT Height 170.2 cm (5' 7) 10/22/2023 11:31 AM CDT Body Mass Index 21.14 10/22/2023 11:31 AM CDT Plan of Treatment Not on file Insurance MEDICARE [facility] MEDICARE [employer] SENIOR SUPPLEMENT MEDICARE Care Teams Wood Form Builder Relationship Specialty Start Date End Date Red Dias DO [address] [place] [phone] PCP - General Family Medicine 02/28/20
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
--- OUTSIDE RECORDS SUMMARY | 2024-12-02 19:28 | XMS_ITS | Encounter Summary ---
Author Organization [facility] Address [address] [facility] [place] [address] Care Team Providers Care Board Lining Machine Operator Name Role Phone Unavailable Primary Care Provider Unavailabl e Encounter Details Date Type Department Care Team (Late st Contact Info) Description 05/14/2023 Lab Requisition [facility] - DermPath Lab [address] [place] [phone] Shivam Richmond MD [address] [place] [address] Social History Tobacco Use Types Packs/Day Years Used Date Smoking Tobacco: Never Assessed Comments Unknown Sex and Gender Information Value Date Recorded Sex Assigned at Not on file Legal Sex Female 6:05 PM AUTOMOTIVE TIRE TECHNICIAN Gender Identity Not on file Sexual Orientation Not on file documented as of this encounter Plan of Treatment Not on file documented as of this encounter Procedures Procedure Name Priority Date/Time Associated Diagnosis Comments DERMATOPATHOLOGY Routine 05/13/2023 12:0 0 AM AUTOMOTIVE TIRE TECHNICIAN documented in this encounter Results * DERMATOPATHOLOGY (05/13/2023 12:00 AM AUTOMOTIVE TIRE TECHNICIAN) Case Report Dermatopathology Report Case: [id number] Authorizing Provider: Shivam Richmond MD Collected: 05/13/2023 12:00 AM Ordering Location: [facility] DermPath Lab Received: 05/15/2023 07:06 AM Pathologist: Cris Moralez MD Specimens: A) - Skin, mid nasal B) - Skin, left upper nasal 11:27 AM AUTOMOTIVE TIRE TECHNICIAN DERMATOPATHOLOGY LABORATORY Final Diagnosis Specimen A. SKIN, mid nasal: ACTINIC KERATOSIS (L57.0) PRESENT AT MARGIN DERMAL SCAR (L90.5) PRESENT AT MARGIN Specimen B. SKIN, left upper nasal: BASAL CELL CARCINOMA (C44.311) NOT PRESENT AT SAMPLED MARGIN DERMAL SCAR (L90.5) PRESENT AT MARGIN 3 11:27 AM [facility] DERMATOPATHOLOGY LABORATORY at [address] AUTOMOTIVE TIRE TECHNICIAN Clinical History A-B: SCC Bx situ 3 11:27 AM [facility] DERMATOPATHOLOGY LABORATORY Gross Description Specimen A: Received is one formalin filled container labeled with the patient's name and designated mid nasal. The specimen consists of a curettage and desiccation biopsy measuring 7x5x1 mm. Jar 0. Specimen B: Received is one formalin filled container labeled with the patient's name and designated left upper nasal. The specimen consists of a curettage and desiccation biopsy measuring 6x6x2 mm. Jar 0. 3 11:27 AM [facility] DERMATOPATHOLOGY LABORATORY Microscopic Description Specimen A. SKIN, mid nasal: There is focal parakeratosis. The lower half of the epidermis shows disorderly maturation of keratinocytes with nuclear pleomorphism. This actinic keratosis is present at the margin of the specimen. There are fibroblasts and collagen bundles oriented parallel to the skin surface with elongated blood vessels, some of which are oriented perpendicular to the skin surface. This scar is present at the base of the specimen. Specimen B. SKIN, left upper nasal: Within the dermis there are aggregates of basaloid cells with a high nuclear to cytoplasmic ratio and peripheral palisading. This basal cell carcinoma is not present at the sampled margin of the specimen. There are fibroblasts and collagen bundles oriented parallel to the skin surface with elongated blood vessels, some of which are oriented perpendicular to the skin surface. This scar is present at the base of the specimen. 3 11:27 AM [facility] DERMATOPATHOLOGY LABORATORY Disclaimer An external and internal positive and negative controls are appropriate for the histochemical, immunohistochemical and immunofluorescence stain(s) in this case (if any), except where stated explicitly. The performance characteristics of the stain(s) cited in this report were developed and its performance characteristic determined by the Dermatopathology Laboratory at [facility], directed by Dr. Chetan Doe. These tests need not be, and therefore are not, approved by the [place] Food and Drug Administration. The tests are used for clinical purposes. Billing Codes Specimen Charges Stain Charges 67743 32193 1 1 3 11:27 AM AUTOMOTIVE TIRE TECHNICIAN DERMATOPATHOLOGY LABORATORY Embedded Images 3 11:27 AM AUTOMOTIVE TIRE TECHNICIAN DERMATOPATHOLOGY LABORATORY Pathology/Cytology TISSUE SPECIMEN FROM SKIN / Unknown 05/13/2023 05/15/2023 7:06 AM AUTOMOTIVE TIRE TECHNICIAN Miscellaneous samples (specimen) TISSUE SPECIMEN FROM SKIN / Unknown 05/13/2023 05/15/2023 7:06 AM AUTOMOTIVE TIRE TECHNICIAN Shivam Richmond MD LAB - PATHOLOGY/CYTOLOGY ORDERAB LES Final Result DERMATOPATHOLOGY LABORATORY [facility] - Department of Dermatology [facility] Medicine [address] [place] [address], [address] [phone] documented in this encounter Visit Diagnoses Not on filedocumented in this encounter
--- OUTSIDE RECORDS SUMMARY | 2024-12-02 19:28 | XMS_ITS ---
Author Organization [facility] Care Team Providers Care Manufacturing Engineering Technologist Name Role Phone Sue Burk Unavailable Unavailable Allergies and adverse reactions Code CodeSystem Substance Reaction Severity StartDate Concern Status 98090 RXNORM Trimethoprim Unknown 02/10/2022 active 76028 RXNORM Sulfamethoxazole Unknown 02/10/[address]77 SN[address] Sulfa Antibiotics Unknown 02/10/[address] Penicillins Severe 02/10/2022 activ e Care Team Name Role Address Phone Organization Dates Sue Burk [place] [address] [place], [address], [place] States (Office): : [facility] 02/10/2022 - 03/01/2022 Immunizations Immunization Status Vaccine Details Vaccine Code CodeSystem Date Notes SARS-COV-2 (COVID-19) normal SARS-COV-2 (COVID-19) vaccine, mRNA, spike protein, LNP, preservative free, 100 mcg/0.5mL dose or 50 mcg/0.25mL dose 207 CVX created date: 02/26/2022 consent date: 02/26/2022 SARS-COV-2 (COVID-19) normal SARS-COV-2 (COVID-19) vaccine, mRNA, spike protein, LNP, preservative free, 100 mcg/0.5mL dose or 50 mcg/0.25mL dose 207 CVX created date: 02/26/2022 consent date: 02/26/2022 SARS-COV-2 (COVID-19) normal SARS-COV-2 (COVID-19) vaccine, mRNA, spike protein, LNP, preservative free, 100 mcg/0.5mL dose or 50 mcg/0.25mL dose 207 CVX created date: 02/26/2022 consent date: 02/26/2022 SARS-COV-2 (COVID-19) completed SARS-COV-2 (COVID-19) vaccine, mRNA, spike protein, LNP, preservative free, 100 mcg/0.5mL dose or 50 mcg/0.25mL dose Mfg: Dalilaa Step 1 of Multi-step with next step required 207 CVX created date: 02/26/2022 administere d date: 04/08/2021 Booster Dose SARS-COV-2 (COVID-19) completed SARS-COV-2 (COVID-19) vaccine, mRNA, spike protein, LNP, preservative free, 100 mcg/0.5mL dose or 50 mcg/0.25mL dose lotNumber: [id number] Mfg: Dalilaa Step 1 of Multi-step with next step required 207 CVX created date: 02/26/2022 administere d date: 08/10/2020 SARS-COV-2 (COVID-19) completed SARS-COV-2 (COVID-19) vaccine, mRNA, spike protein, LNP, preservative free, 100 mcg/0.5mL dose or 50 mcg/0.25mL dose lotNumber: [id number] Step 1 of Multi-step with next step required 207 CVX created date: 02/26/2022 administere d date: 07/13/2020 Mental Status Section Date Assessment Total Score Description 03/01/2022 BIMS 15 cognitively int act CAM 0 No delirium ind icated PHQ-9 00 02/17/2022 BIMS 14 cognitively int act CAM 0 No delirium ind icated PHQ-9 00 Problems Problem # Description Date of onset Resolved Date Code CodeSystem Concern Status 1 VITAMIN D DEFICIENCY, UNSPECIFIED 02/21/[address] active 2 UNSPECIFIED DEMENTIA, UNSPECIFIED SEVERITY, WITHOUT BEHAVIORAL DISTURBANCE, PSYCHOTIC DISTURBANCE, MOOD DISTURBANCE, AND ANXIETY 02/17/[address] active 3 VITAMIN B12 DEFICIENCY ANEMIA, UNSPECIFIED 02/17/[address] active 4 COGNITIVE COMMUNICATION DEFICIT 02/10/[address] active 5 EFFUSION, LEFT KNEE 02/10/2022544740441 SNOMED CT active 6 ESSENTIAL (PRIMARY) HYPERTENSION 02/10/[address] active 7 HYPOTHYROIDISM, UNSPECIFIED 02/10/[address] active 8 MUSCLE WEAKNESS (GENERALIZED) 02/10/[address] active 9 OTHER ABNORMALITIES OF GAIT AND MOBILITY 02/10/[address] active 10 UNSTEADINESS ON FEET 02/10/[address] active Reason for Referral No Reasons for Referral Entered Social History Social History Observation Description Start Date End Date Code Code System Current Smoking Status Tobacco smoking consumption unknown 399207633 SNOMED CT Sex Assigned At Female 1940 37519-8 [facility] Gender Identity Vital Signs Code Code System Vitals Name Values and Units Timing Information 65385-0 [facility] Pain Level Value=0.0 03/01/2022 26795-0 [facility] O2 % BldC Oximetry Value=96.0 Units= % 02/24/2022 8310-5 [facility] Body Temperature Value=97.1 Units= F 02/24/2022 9279-1 [facility] Respiratory Rate Value=18.0 Units=/m in 02/21/2022 8867-4 [facility] Heart rate Value=88.0 Units=/min 8462-4 [facility] Blood Pressure-Diastolic Value=72 Un its=mmHg 02/21/2022 8480-6 [facility] Blood Pressure-Systolic Phnwa=509 Un its=mmHg 02/21/2022 84267-8 [facility] Weight Iioid=704.2 Units=Lbs 8302-2 [facility] Height Value=67.0 Units=Inches 02/12/2022
--- OUTSIDE RECORDS SUMMARY | 2024-12-02 19:28 | XMS_ITS | Encounter Summary ---
Author Organization [facility] Address [address] [facility] [place] [address] Care Team Providers Care Adoption Coordinator Name Role Phone Unavailable Primary Care Provider Unavailabl e Encounter Details Date Type Department Care Team (Late st Contact Info) Description 07/08/2023 Lab Requisition [facility] - DermPath Lab [address] [place] [phone] Shivam Richmond MD [address] [place] [address] Social History Tobacco Use Types Packs/Day Years Used Date Smoking Tobacco: Never Assessed Comments Unknown Sex and Gender Information Value Date Recorded Sex Assigned at Not on file Legal Sex Female 6:05 PM SCIENCE WRITER Gender Identity Not on file Sexual Orientation Not on file documented as of this encounter Plan of Treatment Not on file documented as of this encounter Procedures Procedure Name Priority Date/Time Associated Diagnosis Comments DERMATOPATHOLOGY Routine 07/06/2023 3:33 AM SCIENCE WRITER documented in this encounter Results * DERMATOPATHOLOGY (07/06/2023 3:33 AM SCIENCE WRITER) Case Report Dermatopathology Report Case: [id number] Authorizing Provider: Shivam Richmond MD Collected: 07/06/2023 03:33 AM Ordering Location: [facility] DermPath Lab Received: 07/08/2023 08:57 AM Pathologist: Parveen Doe MD Specimen: Skin, mid lower back 4 5:15 PM SCIENCE WRITER DERMATOPATHOLOGY LABORATORY Final Diagnosis Specimen A. SKIN, mid lower back: PIGMENTED SEBORRHEIC KERATOSIS (L82.1) 4 5:15 PM SCIENCE WRITER DERMATOPATHOLOGY LABORATORY at [address] SCIENCE WRITER Clinical History R/O Hemangioma vs MM 4 5:15 PM [facility] DERMATOPATHOLOGY LABORATORY Gross Description Specimen A: Received is one formalin filled container labeled with the patient's name and designated mid lower back. The specimen consists of a shave biopsy measuring 8x5x2 mm. Jar 0. 4 5:15 PM [facility] DERMATOPATHOLOGY LABORATORY Microscopic Description Specimen A. SKIN, mid lower back: Sections show an acanthotic lesion composed of relatively uniform keratinocytes. There is hyperkeratosis and pseudo horn cysts. Pigment is present in the keratinocytes composing this tumor. 4 5:15 PM [facility] DERMATOPATHOLOGY LABORATORY Disclaimer An external and internal positive and negative controls are appropriate for the histochemical, immunohistochemical and immunofluorescence stain(s) in this case (if any), except where stated explicitly. The performance characteristics of the stain(s) cited in this report were developed and its performance characteristic determined by the Dermatopathology Laboratory at [facility], directed by Dr. Chetan Doe. These tests need not be, and therefore are not, approved by the [place] Food and Drug Administration. The tests are used for clinical purposes. Billing Codes Specimen Charges Stain Charges 32640 1 4 5:15 PM [facility] DERMATOPATHOLOGY LABORATORY Embedded Images 4 5:15 PM [facility] DERMATOPATHOLOGY LABORATORY Pathology/Cytolo gy TISSUE SPECIMEN FROM SKIN / Unknown 07/06/2023 3:33 AM SCIENCE WRITER 07/08/2023 8:57 AM SCIENCE WRITER Shivam Richmond MD LAB - PATHOLOGY/CYTOLOGY ORDERAB LES Final Result DERMATOPATHOLOGY LABORATORY [facility] - Department of Dermatology [address], [address] [phone] documented in this encounter Visit Diagnoses Not on filedocumented in this encounter
--- OUTSIDE RECORDS SUMMARY | 2024-12-02 19:28 | XMS_ITS | Clinical Summary ---
Author Organization [facility] [address] [place] [phone] Care Team Providers Care Seed Analysis Laboratory Assistant Name Role Phone [email or web address] Red Fernandez DO [...] 1 tablet (100 mcg total) by mouth tow mate before breakfast 90 tablet 3 1 Active [...] 10/15/2013 03/01/2020 Overview (09/05/2016): NONTOX MULTINODUL GOITER Surgical History Surgery Date Site/Laterality Comments HYSTERECTOMY Hysterectomy OTHER SURGICAL HISTORY 06/01/1978 - 05/31/1979 varicose veins: surgery HYSTERECTOMY 06/01/1977 - 05/31/1978 Hysterectomy THYROIDECTOMY 06/01/2008 - 05/31/2009 Thyroidectomy THYROIDECTOMY 11/24/2008 Dr. daysi cisneros CATARACT EXTRACTION KIDNEY STONE SURGERY Medical History Medical History Date Comments Disorder of thyroid Thyroid dise ase Hx Other Medical varicose veins Hypothyroidism 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 014 TOX MULTNOD GOIT NO RANI 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 NO NTOX MULTINODUL GOITER Osteopenia Circulation problem Family History Medical History Relation Name Comments Heart disease Father Heart disease; Heart disease Mother Heart disease; Hypertension Mother Hypertension; Other Other 1 Family history of Cancer -skin; Coronary artery disease Other 2 Fami ly history of Coronary artery disease; Other Other 3 No family histo ry of Aneurysm; Other Other 4 No family histo ry of Diabetes mellitus; Hypertension Other 5 Family history of Hypertension; Relation Name Status Comments Father Alive Mother Alive Other 1 Other 2 Other 3 Other 4 Other 5 Social History Tobacco Use Types Packs/Day Years [...] on file Legal Sex Female 12:27 AM ELEVATED MOTORMAN Gender Identity Female 11/11/2020 3:25 PM CDT Sexual Orientation Not on file Obstetrics History Last Filed Vital Signs Vital Sign Reading [...] 10/22/2023 11:31 AM CDT Plan of Treatment Health Maintenance Due Date Last Done Comments Fall Risk Assessment 1940 Osteoporosis Screening-Bone Density Scan 1940 Hepatitis B Screening 1958 Well Visit 65+ 2005 Depression Screening 08/30/2021 08/30/2020, 03/01/20 20 Covid-19 Vaccine (2023-2 5 season) 2024 04/08/2021, 08/10/2020, 07/13/2020 Influenza Vaccine (Season Ended) 2025 03/14/2022, 02/14/2020, 04/04/2019, Additional history exists DTaP/Tdap/Td Vaccine (2 - Td or Tdap) 05/13/2029 05/13/2019, 10/30/2004 Zoster Vaccine Completed 07/13/2018, 07/02, 05/11/2018 Pneumococcal vaccine 65+ Completed 05/13/2019, 07/2014 Insurance MEDICARE [facility] MEDICARE [employer] SENIOR SUPPLEMENT MEDICARE Care Teams Seed Analysis Laboratory Assistant Relationship Specialty Start Date End Date Red Dias DO [address] [place] [address] [phone] PCP - General Family Medicine 02/28/20
--- OUTSIDE RECORDS SUMMARY | 2024-12-02 19:28 | XMS_ITS | Encounter Summary ---
Author Organization [facility] Address [address] [place] [address] Care Team Providers Care Ward Nurse Name Role Phone Unavailable Primary Care Provider Unavailabl e Encounter Details Date Type Department Care Team (Late st Contact Info) Description 04/18/2023 Lab Requisition [facility] - DermPath Lab [address] [place] [phone] Shivam Richmond MD [address] [place] [address] Social History Tobacco Use Types Packs/Day Years Used Date Smoking Tobacco: Never Assessed Comments Unknown Sex and Gender Information Value Date Recorded Sex Assigned at Not on file Legal Sex Female 6:05 PM FURNACE BRAZER Gender Identity Not on file Sexual Orientation Not on file documented as of this encounter Plan of Treatment Not on file documented as of this encounter Procedures Procedure Name Priority Date/Time Associated Diagnosis Comments DERMATOPATHOLOGY Routine 04/16/2023 12:0 0 AM FURNACE BRAZER documented in this encounter Results * DERMATOPATHOLOGY (04/16/2023 12:00 AM FURNACE BRAZER) Case Report Dermatopathology Report Case: [id number] Authorizing Provider: Shivam Richmond MD Collected: 04/16/2023 12:00 AM Ordering Location: [facility] DermPath Lab Received: 04/18/2023 07:47 AM Pathologist: Delma Crane MD Specimens: A) - Skin, mid nasal B) - Skin, left upper nasal 12:28 PM FURNACE BRAZER DERMATOPATHOLOGY LABORATORY Final Diagnosis Specimen A. 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 SKIN, left upper nasal: BASAL CELL CARCINOMA, NODULAR TYPE (C44.311) 3 12:28 PM [facility] DERMATOPATHOLOGY LABORATORY at [address] FURNACE BRAZER Clinical History A-B: R/O BCC 3 12:28 PM [facility] DERMATOPATHOLOGY LABORATORY Gross Description Specimen A: Received is one formalin filled container labeled with the patient's name and designated mid nasal. The specimen consists of a shave biopsy measuring 5x2x1 mm. Jar 0. Specimen B: Received is one formalin filled container labeled with the patient's name and designated left upper nasal. The specimen consists of a shave biopsy measuring 5x2x1 mm. Jar 0. 3 12:28 PM [facility] DERMATOPATHOLOGY LABORATORY Microscopic Description Specimen A. SKIN, mid nasal: The epidermis shows parakeratosis, full thickness disorderly maturation of keratinocytes, mitoses at different levels, and dyskeratotic cells. Specimen B. SKIN, left upper nasal: Within the dermis there are aggregates of basaloid cells with a high nuclear to cytoplasmic ratio and peripheral palisading. 3 12:28 PM [facility] DERMATOPATHOLOGY LABORATORY Disclaimer An external and internal positive and negative controls are appropriate for the histochemical, immunohistochemical and immunofluorescence stain(s) in this case (if any), except where stated explicitly. The performance characteristics of the stain(s) cited in this report were developed and its performance characteristic determined by the Dermatopathology Laboratory at [facility], directed by Dr. Chetan Doe. These tests need not be, and therefore are not, approved by the [place] Food and Drug Administration. The tests are used for clinical purposes. Billing Codes Specimen Charges Stain Charges 93789 40877 1 1 3 12:28 PM FURNACE BRAZER DERMATOPATHOLOGY LABORATORY Embedded Images 3 12:28 PM [facility] DERMATOPATHOLOGY LABORATORY Pathology/Cytology TISSUE SPECIMEN FROM SKIN / Unknown 04/16/2023 04/18/2023 7:47 AM FURNACE BRAZER Miscellaneous samples (specimen) TISSUE SPECIMEN FROM SKIN / Unknown 04/16/2023 04/18/2023 7:47 AM FURNACE BRAZER Shivam Richmond MD LAB - PATHOLOGY/CYTOLOGY ORDERAB LES Final Result DERMATOPATHOLOGY LABORATORY [facility] - Department of Dermatology [facility] Medicine [facility], [address]rd Floor [address] [phone] documented in this encounter Visit Diagnoses Not on filedocumented in this encounter
[2024-12-02 19:50] VITALS: BP 176/86; PULSE 82; RESP 16; TEMP 36.8; O2SAT 96
--- NOTE | 2024-12-02 20:04 | ED.WOUNDLAC ---
HPI - Wound/Laceration General Chief Complaint: Wound/Laceration Stated Complaint: FALL, HEAD INJURY Time Seen by Provider: 12/02/24 19:33 History of Present Illness HPI narrative: 84-year-old female presenting to the emergency department with a closed head injury. She states she was walking on a sidewalk and tripped with her left foot getting the ground and she fell forward onto the left side of her forehead. Did sustain a laceration that was bleeding on scene but has since stopped. No loss of consciousness or blood thinner use. No reported pain, nausea, vomiting, headache, vision changes, dizziness. She was not having any symptoms prior to the fall and mechanically tripped according to herself. Otherwise well-appearing. Unknown tetanus update status. Related Data Home Medications ?Medication ?Instructions ?Recorded ?Confirmed ?Last Taken ?Type antiarthritic combination no.2 900 900 mg PO DAILY 11/28/21 05/17/23 02/04/22 09:00 History mg tablet (glucosamine-chondroitin) biotin 1,000 mcg chewable tablet 1,000 mcg PO DAILY 11/28/21 05/17/23 02/04/22 09:00 History calcitriol 0.25 mcg capsule 0.25 mcg PO DAILY 11/28/21 05/17/23 02/04/22 09:00 History calcium carbonate 500 mg PO TID 11/28/21 05/17/23 02/04/22 History latanoprost 0.005 % eye drops 1 drp EACH EYE HS 11/28/21 05/17/23 02/04/22 21:00 History levothyroxine 100 mcg capsule 100 mcg PO DAILY 11/28/21 05/17/23 02/05/22 06:30 History raloxifene 60 mg tablet 60 mg PO DAILY 11/28/21 05/17/23 02/04/22 09:00 History rosuvastatin 5 mg tablet 5 mg PO HS 11/28/21 05/17/23 02/04/22 21:00 History amlodipine 5 mg tablet 5 mg PO DAILY 05/17/23 05/17/23 Unknown History cyanocobalamin (vitamin B-12) 1,000 mcg PO DAILY 05/17/23 05/17/23 Unknown History 1,000 mcg tablet donepezil 10 mg tablet 10 mg PO DAILY 05/17/23 05/17/23 Unknown History mirabegron 25 mg tablet,extended 25 mg PO DAILY 05/17/23 05/17/23 Unknown History release 24 hr (Myrbetriq) Allergies Allergy/AdvReac Type Severity Reaction Status Date / Time penicillin G Allergy Severe THROAT Verified 05/17/23 14:16 SWELLING Sulfa (Sulfonamide Allergy Severe HIVES Verified 05/17/23 14:16 Antibiotics) Penicillins Allergy Unknown Unknown Verified 05/17/23 14:16 sulfamethizole Allergy Unknown Unknown Verified 05/17/23 14:16 sulfamethoxazole (From Allergy Unknown Hives Verified 05/17/23 14:16 Bactrim) trimethoprim Allergy Unknown Unknown Verified 05/17/23 14:16 Review of Systems Review of Systems: As reviewed above in [facility] Past Medical History Medical History Hypothyroidism Hypertension Hair loss Vision loss Osteopenia Functional urinary incontinence High cholesterol Surgical History Surgical History History of extraction of renal calculus History of thyroidectomy History of hysterectomy Family History Family History Other Family history of arthritis Family history of cardiovascular disease Family history of malignant neoplasm Heart disease Hypertension Social History Social History Smoking status: Never smoker Alcohol intake: never Substance use: never Occupation/Education: retired Gender identity (if verbalized by the patient): Male Spiritual care concerns: No Exam Narrative: GENERAL: [Well-appearing, well-nourished, and in no acute distress.] HEAD: Supraorbital laceration to the left side approximately 2.0 cm without any significant depth or bleeding. Bleeding is controlled at this time, no exposed bone and no palpable deformity. EYES: [PERRLA and EOMI.] ENT: Nares clear, no rhinorrhea or epistaxis. Mucous membranes moist. NECK: Supple. CHEST: [Clear to auscultation. No respiratory distress.] HEART: [Regular rate and rhythm]. No murmur heard. [Normal peripheral pulses.] ABDOMEN: [Soft, nondistended], [nontender], [No rigidity or guarding] EXTREMITIES: Supraorbital laceration left forehead approximate 2 cm. Superficial laceration 1.0 cm to the lateral aspect the left thumb without any exposed muscles or tendons. Full range of motion of the thumb and upper and lower extremities bilaterally. SKIN: Warm, dry, no rash. NEURO: [No focal deficits]. Alert and oriented [x3.] PSYCH: [Normal mood and affect.] Course Vital Signs Vital signs: Vital Signs Temperature 36.8 C 12/02/24 19:50 Pulse Rate 82 12/02/24 19:50 Respiratory Rate 16 12/02/24 19:50 Blood Pressure 176/86 H 12/02/24 19:50 Pulse Oximetry 96 12/02/24 19:50 Oxygen Delivery Room Air 12/02/24 19:50 Temperature 36.8 C 12/02/24 19:50 Pulse Rate 82 12/02/24 19:50 Respiratory Rate 16 12/02/24 19:50 Blood Pressure 176/86 H 12/02/24 19:50 Pulse Oximetry 96 12/02/24 19:50 Oxygen Delivery Room Air 12/02/24 19:50 Procedures Laceration Laceration 1: Date: 12/02/24 Time: 21:00 Site: scalp Side (If applicable): left Size (cm): 2 Description: linear and clean Depth: simple, single layer Local Anesthetic: lidocaine 1% Amount of anesthesia used (mL): 4 Pre-repair: wound explored, irrigated and deep structures intact ====== Skin Level ====== Skin layer closed with: nylon Size (cm): 5-0 Number of sutures: 5 Technique: simple, interrupted ====== Subcutaneous Layer ====== ====== Muscle Layer ====== ====== Tendon Layer ====== Dressing: Non adherent dressing on top Laceration 2: Date: 12/02/24 Time: 21:00 Site: hand Side (If applicable): left Size (cm): 1.0 Description: linear Depth: simple, single layer Local Anesthetic: none Pre-repair: wound explored, irrigated and deep structures intact ====== Skin Level ====== Skin layer closed with: dermabond and steri strips ====== Subcutaneous Layer ====== ====== Muscle Layer ====== ====== Tendon Layer ====== Dressing: Not adherent dressing MDM - Wound/Laceration MDM Narrative Medical decision making narrative: 84-year-old female presenting to the emergency department with a closed head injury. She states she was walking on a sidewalk and tripped with her left foot getting the ground and she fell forward onto the left side of her forehead. Did sustain a laceration that was bleeding on scene but has since stopped. No loss of consciousness or blood thinner use. No reported pain, nausea, vomiting, headache, vision changes, dizziness. She was not having any symptoms prior to the fall and mechanically tripped according to herself. Otherwise well-appearing. Unknown tetanus update status. CT of the head was ordered given her high risk factors including age and her tetanus was updated. Forehead wound was closed with primary closure with lidocaine numbing and Ethilon sutures. Thumb injury was closed with Dermabond and non adherent dressing She was given return precautions and follow-up instructions for wound. CT head unremarkable and negative. Patient is ambulatory with a steady gait and safe for discharge. Medical Records Attestation: I reviewed the patient's medical records. Imaging Data Attestation: I personally reviewed and interpreted this imaging study as follows: My impression: Impressions Head CT 12/02/24 20:39 IMPRESSION: No acute intracranial findings. Discharge Plan Discharge Clinical Impression: CHI (closed head injury), Laceration of forehead, Laceration of thumb Patient Disposition: Home Condition: Stable Instructions: Antibiotic Form, Care For Your Stitches (ED), Laceration (ED), Skin Avulsion (ED), Skin Adhesive Care (ED) Additional Instructions: Your CT scan shows no injuries. Your wound was repaired with stitches on the forehead and skin glue/Dermabond in the thumb. Keep the Dermabond on the thumb dry for the next 24 hours in the skin glue will fall off naturally within 3-5 days. The forehead laceration was repaired with 5 stitches that need to come out within 10-14 days. Follow-up with your regular doctor, urgent care, return to the emergency department or any healthcare professional and they can remove the stitches there. Return with signs of infection or any other new concerns. Patient Language: Yakut Prescriptions: No Action donepezil 10 mg tablet 10 mg PO DAILY cyanocobalamin (vitamin B-12) 1,000 mcg tablet 1,000 mcg PO DAILY amlodipine 5 mg tablet 5 mg PO DAILY Myrbetriq 25 mg tablet extended release 24 hr 25 mg PO DAILY calcitriol 0.25 mcg capsule 0.25 mcg PO DAILY levothyroxine 100 mcg capsule 100 mcg PO DAILY latanoprost 0.005 % drops 1 drp EACH EYE HS raloxifene 60 mg tablet 60 mg PO DAILY rosuvastatin 5 mg tablet 5 mg PO HS calcium carbonate 500 mg calcium (1,250 mg) tablet 500 mg PO TID Patient Comments: per home medication list glucosamine-chondroitin 900 mg tablet 900 mg PO DAILY biotin 1,000 mcg tablet,chewable 1,000 mcg PO DAILY Follow-up/Referrals: Arun,DO Red [Primary Care Provider] - Time of Disposition: 21:02
[2024-12-02] MEDS: TETANUS,DIPHTHERIA,AC PERTUSSIS ADULT (0.5 ML) BOOSTRIX IM (20:08)
--- OUTSIDE RECORDS SUMMARY | 2024-12-02 20:31 | XMS_ITS | Encounter Summary ---
Author Organization [facility] Address [address] [place] [address] Care Team Providers Care Superintendent Distribution Name Role Phone Unavailable Primary Care Provider Unavailabl e Encounter Details Date Type Department Care Team (Late st Contact Info) Description 04/18/2023 Lab Requisition [facility] - DermPath Lab [address] [place] [id number] Shivam Richmond MD [address] [place] [address] Social History Tobacco Use Types Packs/Day Years Used Date Smoking Tobacco: Never Assessed Comments Unknown Sex and Gender Information Value Date Recorded Sex Assigned at Not on file Legal Sex Female 6:05 PM SUPPLY TEACHER Gender Identity Not on file Sexual Orientation Not on file documented as of this encounter Plan of Treatment Not on file documented as of this encounter Procedures Procedure Name Priority Date/Time Associated Diagnosis Comments DERMATOPATHOLOGY Routine 04/16/2023 12:0 0 AM SUPPLY TEACHER documented in this encounter Results * DERMATOPATHOLOGY (04/16/2023 12:00 AM SUPPLY TEACHER) Case Report Dermatopathology Report Case: [id number] Authorizing Provider: Shivam Richmond MD Collected: 04/16/2023 12:00 AM Ordering Location: [facility] DermPath Lab Received: 04/18/2023 07:47 AM Pathologist: Delma Crane MD Specimens: A) - Skin, mid nasal B) - Skin, left upper nasal 12:28 PM SUPPLY TEACHER DERMATOPATHOLOGY LABORATORY Final Diagnosis Specimen A. 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 SKIN, left upper nasal: BASAL CELL CARCINOMA, NODULAR TYPE (C44.311) 3 12:28 PM [facility] DERMATOPATHOLOGY LABORATORY at [address] SUPPLY TEACHER Clinical History A-B: R/O BCC 3 12:28 PM [facility] DERMATOPATHOLOGY LABORATORY Gross Description Specimen A: [...] 5x2x1 mm. Jar 0. 3 12:28 PM [facility] DERMATOPATHOLOGY LABORATORY Microscopic Description Specimen A. SKIN, mid nasal: The epidermis shows parakeratosis, full thickness disorderly maturation of keratinocytes, mitoses at different levels, and dyskeratotic cells. Specimen B. SKIN, left upper nasal: Within the dermis there are aggregates of basaloid cells with a high nuclear to cytoplasmic ratio and peripheral palisading. 3 12:28 PM [facility] DERMATOPATHOLOGY LABORATORY Disclaimer An external and internal positive and negative controls are appropriate for the histochemical, immunohistochemical and immunofluorescence stain(s) in this case (if any), except where stated explicitly. The performance characteristics of the stain(s) cited in this report were developed and its performance characteristic determined by the Dermatopathology Laboratory at [facility], directed by Dr. Chetan Doe. These tests need not be, and therefore are not, approved by the [place] Food and Drug Administration. The tests are used for clinical purposes. Billing Codes Specimen Charges Stain Charges 07655 52610 1 1 3 12:28 PM SUPPLY TEACHER DERMATOPATHOLOGY LABORATORY Embedded Images 3 12:28 PM [facility] DERMATOPATHOLOGY LABORATORY Pathology/Cytology TISSUE SPECIMEN FROM SKIN / Unknown 04/16/2023 04/18/2023 7:47 AM SUPPLY TEACHER Miscellaneous samples (specimen) TISSUE SPECIMEN FROM SKIN / Unknown 04/16/2023 04/18/2023 7:47 AM SUPPLY TEACHER Shivam Richmond MD LAB - PATHOLOGY/CYTOLOGY ORDERAB LES Final Result DERMATOPATHOLOGY LABORATORY [facility] - Department of Dermatology [facility], [address]rd Floor [address] [phone] documented in this encounter Visit Diagnoses Not on filedocumented in this encounter
--- OUTSIDE RECORDS SUMMARY | 2024-12-02 20:31 | XMS_ITS | Encounter Summary ---
Author Organization [facility] Address [address] [place] [address] Care Team Providers Care Equipment Tech Name Role Phone Unavailable Primary Care Provider Unavailabl e Encounter Details Date Type Department Care Team (Late st Contact Info) Description 05/14/2023 Lab Requisition [facility] - DermPath Lab [address] [place] [phone] Shivam Richmond MD [address] [place] [address] Social History Tobacco Use Types Packs/Day Years Used Date Smoking Tobacco: Never Assessed Comments Unknown Sex and Gender Information Value Date Recorded Sex Assigned at Not on file Legal Sex Female 6:05 PM RESPIRATORY THERAPY AIDE Gender Identity Not on file Sexual Orientation Not on file documented as of this encounter Plan of Treatment Not on file documented as of this encounter Procedures Procedure Name Priority Date/Time Associated Diagnosis Comments DERMATOPATHOLOGY Routine 05/13/2023 12:0 0 AM RESPIRATORY THERAPY AIDE documented in this encounter Results * DERMATOPATHOLOGY (05/13/2023 12:00 AM RESPIRATORY THERAPY AIDE) Case Report Dermatopathology Report Case: [id number] Authorizing Provider: Shivam Richmond MD Collected: 05/13/2023 12:00 AM Ordering Location: [facility] DermPath Lab Received: 05/15/2023 07:06 AM Pathologist: Cris Moralez MD Specimens: A) - Skin, mid nasal B) - Skin, left upper nasal 11:27 AM RESPIRATORY THERAPY AIDE DERMATOPATHOLOGY LABORATORY Final Diagnosis Specimen A. SKIN, mid nasal: ACTINIC KERATOSIS (L57.0) PRESENT AT MARGIN DERMAL SCAR (L90.5) PRESENT AT MARGIN Specimen B. SKIN, left upper nasal: BASAL CELL CARCINOMA (C44.311) NOT PRESENT AT SAMPLED MARGIN DERMAL SCAR (L90.5) PRESENT AT MARGIN 3 11:27 AM [facility] DERMATOPATHOLOGY LABORATORY at [address] RESPIRATORY THERAPY AIDE Clinical History A-B: SCC Bx situ 3 11:27 AM [facility] DERMATOPATHOLOGY LABORATORY Gross Description Specimen [...] 6x6x2 mm. Jar 0. 3 11:27 AM [facility] DERMATOPATHOLOGY LABORATORY Microscopic Description Specimen [...] base of the specimen. 3 11:27 AM [facility] DERMATOPATHOLOGY LABORATORY Disclaimer An external and internal positive and negative controls are appropriate for the histochemical, immunohistochemical and immunofluorescence stain(s) in this case (if any), except where stated explicitly. The performance characteristics of the stain(s) cited in this report were developed and its performance characteristic determined by the Dermatopathology Laboratory at [facility], directed by Dr. Chetan Doe. These tests need not be, and therefore are not, approved by the [place] Food and Drug Administration. The tests are used for clinical purposes. Billing Codes Specimen Charges Stain Charges 04991 26187 1 1 3 11:27 AM RESPIRATORY THERAPY AIDE DERMATOPATHOLOGY LABORATORY Embedded Images 3 11:27 AM RESPIRATORY THERAPY AIDE DERMATOPATHOLOGY LABORATORY Pathology/Cytology TISSUE SPECIMEN FROM SKIN / Unknown 05/13/2023 05/15/2023 7:06 AM RESPIRATORY THERAPY AIDE Miscellaneous samples (specimen) TISSUE SPECIMEN FROM SKIN / Unknown 05/13/2023 05/15/2023 7:06 AM RESPIRATORY THERAPY AIDE Shivam Richmond MD LAB - PATHOLOGY/CYTOLOGY ORDERAB LES Final Result DERMATOPATHOLOGY LABORATORY [facility] - Department of Dermatology [facility] Medicine [address] [place] [address], [address] [phone] documented in this encounter Visit Diagnoses Not on filedocumented in this encounter
--- OUTSIDE RECORDS SUMMARY | 2024-12-02 20:31 | XMS_ITS ---
Author Organization [facility] Care Team Providers Care Telegraphic Typewriter Operator Chief Name Role Phone Sue Burk Unavailable Unavailable Allergies and adverse reactions Code CodeSystem Substance Reaction Severity StartDate Concern Status 24087 RXNORM Trimethoprim Unknown 02/10/2022 active 94271 RXNORM Sulfamethoxazole Unknown 02/10/[address]32 SN[address]ED [address] Sulfa Antibiotics Unknown 02/10/[address] Penicillins Severe 02/10/2022 activ e Care Team Name Role Address Phone Organization Dates Sue Burk [place] [address] [place], [address], [place] (Office): : [facility] 02/10/2022 - 03/01/2022 Immunizations Immunization Status Vaccine [...] mcg/0.5mL dose or 50 mcg/0.25mL dose Mfg: [employer]iala Step 1 of Multi-step with next step required 207 CVX created date: 02/26/2022 administere d date: 04/08/2021 Booster Dose SARS-COV-2 (COVID-19) completed SARS-COV-2 (COVID-19) vaccine, mRNA, spike protein, LNP, preservative free, 100 mcg/0.5mL dose or 50 mcg/0.25mL dose lotNumber: [id number] Mfg: Dalilaa Step 1 of Multi-step with next step required 207 CVX created date: 02/26/2022 administere d date: 08/10/2020 SARS-COV-2 (COVID-19) completed SARS-COV-2 (COVID-19) vaccine, mRNA, spike protein, LNP, preservative free, 100 mcg/0.5mL dose or 50 mcg/0.25mL dose lotNumber: [id number] Step 1 of Multi-step with next step [...] Status 1 VITAMIN D DEFICIENCY, UNSPECIFIED 02/21/[address] active 2 UNSPECIFIED DEMENTIA, UNSPECIFIED SEVERITY, WITHOUT BEHAVIORAL DISTURBANCE, PSYCHOTIC DISTURBANCE, MOOD DISTURBANCE, AND ANXIETY 02/17/[address] active 3 VITAMIN B12 DEFICIENCY ANEMIA, UNSPECIFIED 02/17/[address] active 4 COGNITIVE COMMUNICATION DEFICIT 02/10/[address] active 5 EFFUSION, LEFT KNEE 02/10/2022125998335 SNOMED CT active 6 ESSENTIAL (PRIMARY) HYPERTENSION 02/10/[address] active 7 HYPOTHYROIDISM, UNSPECIFIED 02/10/[address] active 8 MUSCLE WEAKNESS (GENERALIZED) 02/10/[address] active 9 OTHER ABNORMALITIES OF GAIT AND MOBILITY 02/10/[address] active 10 UNSTEADINESS ON FEET 02/10/[address] active Reason for Referral No Reasons for Referral Entered Social History Social History Observation Description Start Date End Date Code Code System Current Smoking Status Tobacco smoking consumption unknown 769761604 SNOMED CT Sex Assigned At Female 1940 18410-2 [facility] Gender Identity Vital Signs Code Code System Vitals Name Values and Units Timing Information 38555-8 [facility] Pain Level Value=0.0 03/01/2022 42514-2 [facility] O2 % BldC Oximetry Value=96.0 Units= % 02/24/2022 8310-5 [facility] Body Temperature Value=97.1 Units= F 02/24/2022 9279-1 [facility] Respiratory Rate Value=18.0 Units=/m in 02/21/2022 8867-4 [facility] Heart rate Value=88.0 Units=/min 8462-4 [facility] Blood Pressure-Diastolic Value=72 Un its=mmHg 02/21/2022 8480-6 [facility] Blood Pressure-Systolic Vpsti=824 Un its=mmHg 02/21/2022 69548-7 [facility] Weight Urred=510.2 Units=Lbs 8302-2 [facility] Height Value=67.0 Units=Inches 02/12/2022
--- OUTSIDE RECORDS SUMMARY | 2024-12-02 20:31 | XMS_ITS | Clinical Summary ---
Author Organization [facility] Address [address] [place] [address] Care Team Providers Care Striping Machine Operator Name Role Phone Red Dias DO Primary [...] Type Department Care Team Description 10/02/2024 Telephone [facility] Family Internal [address] [phone] Jory Ibanez APNP After Hours Page 09/29/2024 9:20 AM CDT Office Visit [facility] Internal [address] [phone] Red Dias, Hypertension (6 month follow up); Hyperlipidemia (6 month follow up); Hypothyroidism (6 month follow up); Urinary Incontinence (Patient has questions about medications and purpose of taking them as to how it works.); Problem (foot) (Patient would like to have her R foot looked at. Had partial toenail removal last week by tear down worker, patient would like to discuss.); Skin Concern (Patient would like her back and her nose looked at for any suspicious areas. Has hx of skin cancer.) 09/29/2024 Results Follow-Up [facility] Internal [address] [address] Red Dias, VITAMIN B-12, PTH - INTACT, VITAMIN D, 25 OH, Additional followed-up results: 5 09/29/2024 Travel 09/27/2024 1:20 PM CDT Laboratory Only [facility] Internal [address] [phone] Red Dias DO 09/27/2024 - 09/27/2024 11:59 PM CDT Hospital En[facility] [address] [place] [address] Red Dias DO Discharge Disposition: Home or Self Care (Routine Discharge) 09/27/2024 Travel 09/20/2024 Patient Outreach [facility] Internal [address] [phone] Red Dias DO Pre-visit Gap Closure 09/12/2024 1:20 PM CDT Office Visit [facility] - [facility] [address] [facility], [address] [place] [address] Chito Landry MD Follow Up [...] (TDVAX) 10/30/2004 Tdap (Boostrix) 05/13/2019 Zoster (Zostavax) [address] Unt/0.65Ml 07/13/2018, Family History Medical History Relation [...] Description 03/14/2025 2:40 PM CDT Office Visit [facility] - [address], [address] [place] [phone] Chito Landry MD [address] [place] [address] 04/03/2025 9:20 AM 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 Office Visit [facility] Family & Internal Medicine - [id number] [place] [address] Red Dias, [address] [place] [address] Health Maintenance Due Date Last Done Comments Annual Medicare Wellness Visit 03/27/2022 03/26/2021 Dexa Scan (General) 09/15/2025 09/16/2023, 0 DTaP, Tdap and Td Vaccines (2 - Td or Tdap) 05/13/2029 05/13/2019, 10/30/2004, 10/30/2004, Additional history exists Zoster Vaccines Completed 07/13/2018, 07/02, 05/11/2018, Additional history exists Pneumococcal Vaccine: 50+ Years Completed 05/13/2019, 04/03/2015 RSV Immunization or 60+ Years Completed 03/10/2024 PHQ-2 (Physician [place]) Completed 09/12/2024 COVID-19 Vaccine Completed 09/29/2024, 03/2024, [...] - 3.740 uIU/ML 09/28/2024 11:14 AM CDT [facility] 09/27/2024 1:16 PM CDT Red Dias DO LABORATORY Final Re sult [facility] [address] [place] [address], [place] [phone] * PTH - INTACT (09/27/2024 1:16 PM CDT) PTH 30.0 18.4 - 80.1 PG/ML 09/27/2024 10:22 PM CDT [facility] Comment: ASSAY PERFORMED BY CHEMILUMINESCENCE METHODOLOGY USING SIEMENS [employer] XPT REAGENT. PATIENT RESULTS DETERMINED BY ASSAYS USING DIFFERENT MANUFACTURERS FOR METHODS MAY NOT BE COMPARABLE. 09/27/2024 1:16 PM CDT Red Dias LABORATORY Final Re sult Performing Organization Address City/[facility]/ZIP Co de Phone Number [facility] [address] [place] [address], [place] [phone] * (ABNORMAL) VITAMIN B-12 (09/27/2024 1:16 PM CDT) VITAMIN B12 S/P/B 1,246(H) 193 - 986 PG/ML 09/28/2024 11:14 AM CDT [facility] 09/27/2024 1:16 PM CDT Red Dias LABORATORY Final Re sult Performing Organization Address City/[facility]/ZIP Co de Phone Number [facility] [address] [place] [address], [place] [phone] * (ABNORMAL) COMPREHENSIVE METABOLIC PANEL (09/27/2024 1:16 PM CDT) SODIUM S/P/B 142 136 - 145 MMOL/L 09/28/2024 11:14 AM CDT [facility] POTASSIUM S/P/B 4.3 3.5 - 5.1 MMOL/L 09/28/2024 11:14 AM CDT -[facility] CHLORIDE S/P/B 104 98 - 107 MMOL/L 09/28/2024 11:14 AM CDT MG-[facility] CO2 31.0 21 - 32 MMOL/L 09/28/2024 11:14 AM CDT -[facility] GLUCOSE 90 70 - 99 MG/DL 09/28/2024 11:14 AM CDT [facility] BUN 14 7 - 18 MG/DL 09/28/2024 11:14 AM CDT [facility] CREATININE S/P/B 0.77 0.55 - 1.02 MG/DL 09/28/2024 11:14 AM CDT [facility] CALCIUM S/P/B 9.3 8.4 - 10.5 MG/DL 09/28/2024 11:14 AM CDT [facility] BILIRUBIN TOTAL S/P/B 0.6 0.2 - 1.0 MG/DL 09/28/2024 11:14 AM CDT [facility] ALKALINE PHOSPHATASE S/P/B 74 55 - 142 U/L 09/28/2024 11:14 AM CDT [facility] AST 20 15 - 37 U/L 09/28/2024 11:14 AM CDT [facility] ALT 24 14 - 59 U/L 09/28/2024 11:14 AM CDT [facility] TOTAL PROTEIN S/P/B 7.0 6.4 - 8.2 G/DL 09/28/2024 11:14 AM CDT [facility] ALBUMIN S/P/B 3.7 3.4 - 5.0 G/DL 09/28/2024 11:14 AM CDT [facility] ANION GAP 7.0 5 - 15 MMOL/L 09/28/2024 11:14 AM CDT [facility] Comment:REFERENCE RANGE NOT ESTABLISHED OSMOLALITY (CALC) 294 MOSM/KG 025 11:14 AM CDT [facility] Comment:REFERENCE RANGE NOT ESTABLISHED GFR ESTIMATE 76(L) >90 ML/MIN/1. 73 M2 09/28/2024 11:14 AM CDT [facility] GFR NOTES GFR REFERENCE S: 09/28/2024 11:14 AM CDT [facility] Comment: THE ESTIMATED GFR IS CALCULATED [...] Red Dias DO LABORATORY Final Re sult [facility] [address] [place] [address], [place] [phone] * LIPID PANEL (09/27/2024 1:16 PM CDT) CHOLESTEROL 194 <200 MG/DL 09/28/2024 11:14 AM CDT [facility] TRIGLYCERIDES 41 <150 MG/DL 09/28/2024 11:14 AM CDT [facility] HDL 99 >40 MG/DL 09/28/2024 11:14 AM CDT [facility] LDL-C 87 <100 MG/DL 09/28/2024 11:14 AM CDT [facility] VLDL CALCULATION 8 5 - 28 MG/DL 09/28/2024 11:14 AM CDT [facility] CHOL/HDL RATIO 2.0 0.0 - 4.0 09/28/2024 11:14 AM CDT [facility] LDL/HDL 0.9 0.41 - 2.13 09/28/2024 11:14 AM CDT [facility] NON HDL CHOLESTEROL 95 <140 MG/DL 09/28/2024 11:14 AM CDT [facility] 09/27/2024 1:16 PM CDT us Red Dias DO LABORATORY Final Re sult [facility] [address] [place] [address], * (ABNORMAL) CBC W/DIFF AUTOMATED (09/27/2024 1:16 PM CDT) WBC 4.56 4.00 - 10.80 x10'3/uL 09/27/2024 8:14 PM CDT [facility] RBC 4.48 4.10 - 5.40 x10'6/uL 09/27/2024 8:14 PM CDT [facility] HGB 13.6 12.0 - 16.0 G/DL 09/27/2024 8:14 PM CDT [facility] HCT 42.5 36.0 - 47.0 % 09/27/2024 8:14 PM CDT [facility] MCV 94.9 78.0 - 100.0 FL 09/27/2024 8:14 PM CDT [facility] MCH 30.4 27.0 - 31.0 PG 09/27/2024 8:14 PM CDT [facility] MCHC 32.0(L) 33.0 - 36.0 G/DL 09/27/2024 8:14 PM CDT [facility] RDW 13.7 11.5 - 14.5 % 09/27/2024 8:14 PM CDT [facility] PLT 246 150 - 350 x10'3/uL 09/27/2024 8:14 PM CDT [facility] MPV 11.1(H) 7.4 - 10.4 FL 09/27/2024 8:14 PM CDT [facility] DIFFERENTIAL TYPE AUTOMATED DIFFERENTIAL 09/27/2024 8:14 PM CDT [facility] NEUTROPHILS % 61.6 % 09/27/2024 8:14 PM CDT [facility] LYMPHOCYTES % 25.4 % 09/27/2024 8:14 PM CDT [facility] MONOCYTES % 10.1 % 09/27/2024 8:14 PM CDT [facility] EOSINOPHILS % 1.8 % 09/27/2024 8:14 PM CDT [facility] BASOPHILS % 0.9 % 09/27/2024 8:14 PM CDT [facility] IMMATURE GRANS % 0.2 % 09/27/2024 8:14 PM CDT [facility] ABS. NEUTROPHILS 2.81 1.60 - 8.30 x10'3/uL 09/27/2024 8:14 PM CDT [facility] ABS. LYMPHOCYTES 1.16 0.80 - 4.70 x10'3/uL 09/27/2024 8:14 PM CDT [facility] ABS. MONOCYTES 0.46 0.00 - 1.50 x10'3/uL 09/27/2024 8:14 PM CDT [facility] ABS. EOSINOPHILS 0.08 0.00 - 0.40 x10'3/uL 09/27/2024 8:14 PM CDT [facility] ABS. BASOPHILS 0.04 0.00 - 0.20 x10'3/uL 09/27/2024 8:14 PM CDT [facility] ABS. IMMATURE GRANULOCYTES 0.01 0.00 - 0.03 x10'3/uL 09/27/2024 8:14 PM CDT [facility] 09/27/2024 1:16 PM CDT Red Dias DO LABORATORY Final Re sult Performing Organization Address City/[facility]/ZIP Co de Phone Number [facility] [address] [place] [address], [place] [phone] * THYROXINE, FREE (FT4) (09/27/2024 1:16 PM CDT) FREE T4 1.31 0.76 - 1.46 NG/DL 09/28/2024 11:46 AM CDT [facility] 09/27/2024 1:16 PM CDT Red Dias DO LABORATORY Final Re sult Performing Organization Address [facility] Co de Phone Number [address] [address], [place] [phone] * VITAMIN D, 25 OH (09/27/2024 1:16 PM CDT) VITAMIN D 25 HYDROXY TOTAL S/P/B 39.4 30 - 100 NG/ML 09/28/2024 11:14 AM CDT [facility] Comment: DEFICIENT <20 INSUFFICIENT 20-30 SUFFICIENT 30-100 09/27/2024 1:16 PM CDT Red Dias DO LABORATORY Final Re sult Performing Organization Address [facility] Co de Phone Number [facility] [address] [place] [phone], * BONE DENSITY GENERIC (SCAN ORDER) (09/16/2023) Anatomical Region Laterality Modality Other 09/16/2023 [facility] Scanned SCANNING Final Resu lt from Last 3 Months or Most Recently Relevant to Health Maintenance Insurance MEDICARE [employer]ET[employer] Advance Directives Documents on File Type Date Recorded Patient Leno Sewer Expl anation Power of Retoucher Photoengraving 03/29/2020 Legal Documents 01/20/2019 Care Teams Striping Machine Operator Relationship Specialty Start Date End Date Red Dias DO [facility] [place] [address] PCP - General FAMILY PRACTICE 06/23/18
--- OUTSIDE RECORDS SUMMARY | 2024-12-02 20:31 | XMS_ITS | Clinical Summary ---
Author Organization [facility] Address [address] [facility] [place] [address] Care Team Providers Care Customer Care Coordinator Name Role Phone Unavailable Primary Care Provider Unavailabl e Source Comments [facility],non-owned Affiliates and Associated Physician Practices is amultiple site organization consisting of ambulatory clinics and hospital sitesin [place], [place], [place] and [place]. This disclosure is being madepursuant to the Care Everywhere program and may not contain all information available regarding this patient. 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
--- OUTSIDE RECORDS SUMMARY | 2024-12-02 20:31 | XMS_ITS | Encounter Summary ---
Author Organization [facility] Address [address] [place] [address] Care Team Providers Care Apartment Leasing Manager Name Role Phone Unavailable Primary Care Provider Unavailabl e Encounter Details Date Type Department Care Team (Late st Contact Info) Description 07/08/2023 Lab Requisition [facility] - DermPath Lab [address] [place] [phone] Shivam Richmond MD [address] [place] [address] Social History Tobacco Use Types Packs/Day Years Used Date Smoking Tobacco: Never Assessed Comments Unknown Sex and Gender Information Value Date Recorded Sex Assigned at Not on file Legal Sex Female 6:05 PM 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 CONSULTANT Gender Identity Not on file Sexual Orientation Not on file documented as of this encounter Plan of Treatment Not on file documented as of this encounter Procedures Procedure Name Priority Date/Time Associated Diagnosis Comments DERMATOPATHOLOGY Routine 07/06/2023 3:33 AM IMMIGRATION CONSULTANT documented in this encounter Results * DERMATOPATHOLOGY (07/06/2023 3:33 AM IMMIGRATION CONSULTANT) Case Report Dermatopathology Report Case: [id number] Authorizing Provider: Shivam Richmond MD Collected: 07/06/2023 03:33 AM Ordering Location: [facility] Received: 07/08/2023 08:57 AM Pathologist: Parveen Doe MD Specimen: Skin, mid lower back 4 5:15 PM IMMIGRATION CONSULTANT DERMATOPATHOLOGY LABORATORY Final Diagnosis Specimen A. SKIN, mid lower back: PIGMENTED SEBORRHEIC KERATOSIS (L82.1) 4 5:15 PM IMMIGRATION CONSULTANT DERMATOPATHOLOGY LABORATORY at [address]15 IMMIGRATION CONSULTANT Clinical History R/O Hemangioma vs MM 4 5:15 PM [facility] DERMATOPATHOLOGY LABORATORY Gross Description Specimen A: Received is one formalin filled container labeled with the patient's name and designated mid lower back. The specimen consists of a shave biopsy measuring 8x5x2 mm. Jar 0. 4 5:15 PM [facility] DERMATOPATHOLOGY LABORATORY Microscopic Description Specimen A. SKIN, mid lower back: Sections show an acanthotic lesion composed of relatively uniform keratinocytes. There is hyperkeratosis and pseudo horn cysts. Pigment is present in the keratinocytes composing this tumor. 4 5:15 PM [facility] DERMATOPATHOLOGY LABORATORY Disclaimer An external and internal positive and negative controls are appropriate for the histochemical, immunohistochemical and immunofluorescence stain(s) in this case (if any), except where stated explicitly. The performance characteristics of the stain(s) cited in this report were developed and its performance characteristic determined by the Dermatopathology Laboratory at [facility], directed by Dr. Chetan Doe. These tests need not be, and therefore are not, approved by the [place] Food and Drug Administration. The tests are used for clinical purposes. Billing Codes Specimen Charges Stain Charges 03795 1 4 5:15 PM [facility] DERMATOPATHOLOGY LABORATORY Embedded Images 4 5:15 PM [facility] DERMATOPATHOLOGY LABORATORY Pathology/Cytolo gy TISSUE SPECIMEN FROM SKIN / Unknown 07/06/2023 3:33 AM IMMIGRATION CONSULTANT 07/08/2023 8:57 AM IMMIGRATION CONSULTANT Shivam Richmond MD LAB - PATHOLOGY/CYTOLOGY ORDERAB LES Final Result DERMATOPATHOLOGY LABORATORY [facility] - Department of Dermatology [address], [address] [phone] documented in this encounter Visit Diagnoses Not on filedocumented in this encounter
== END 2024-12-02 21:31 | disposition home or self-care (01) ==
PROVIDERS: Emergency Provider Student in an Organized Health Care Education/Training Program; PCP Student in an Organized Health Care Education/Training Program
DX: S01.81XA Laceration without foreign body of other part of head, initial encounter (principal); S61.012A Laceration without foreign body of left thumb without damage to nail, initial encounter; W18.30XA Fall on same level, unspecified, initial encounter; E03.9 Hypothyroidism, unspecified; I10 Essential (primary) hypertension; Z23 Encounter for immunization
CPT/HCPCS: 12002; 70450; 90471; 90715; 99283; 99284

== ENCOUNTER 2025-01-18 13:15 | Outpatient (RCR) | payer MEDICARE, SELFPAY ==
--- NOTE | 2024-11-23 09:57 | OPREHPOC ---
Outpatient Therapy Plan of Care This is a Multidisciplinary Plan of Care that may contain components documented by all disciplines (PT, OT, and ST.) PT Problem 1 PT Problem #1 Knowledge Deficit PT Goal 1 Goal / Goal Update 1. Patient will perform independent HEP 2. Patient will verbalize urge suppression strategies Target Visit 5 PT Problem 2 PT Problem #2 Impaired Strength PT Goal 1 Goal / Goal Update 1. Improve pelvic floor strength to 3/5 to reduce incontinence 2. Improve pelvic floor endurance to 10 seconds to reduce incontinence Target Visit 5 PT Problem 3 PT Problem #3 Impaired Functional ADLs PT Goal 1 Goal / Goal Update 1. Patient will void no more than 8 times a day 2. Patient will report incontinence no more than 1 time per week 3. Patient will be able to hold 30 minutes before needing to void Target Visit 5
--- NOTE | 2024-11-23 09:57 | PTOPEVAL1 ---
Assessment and note entered by Luz Elena Corea DPT Evaluation Information Assessment Status Evaluation ICD-10 Condition Codes (PT) Weakness R53.1,Urge incontinence N39.41,Mixed incontinence N39.46,Stress incontinence N39.3 Subjective Information Pt reports urinary incontinence for several years and has been worsening. Notices it a lot overnight and will wake up saturated. Notices incontinence with sit to stand. Puts on a layer of 3 depends in the morning and takes the wet one off as she goes. Voids every 2 hours during the day (likely 10+), 1-2 times at night. Generally is getting urinary incontinence 6 days out of 7. Can hold urge 5 minutes. Reports some urge incontinence especially when getting home into her garage. Denies pain with urination. BM most days. Very intermittent bowel urgency. No history of pelvic pain. Pt had 1 vaginal delivery. Hysterectomy in 1977. No other b/b history. Patient goal: not to have to layer her clothes, manage clothing choices around incontinence Returns to MD in 6 month. Reported Pain Level Pain Score 0: Self Report Assessment PT Clinical Summary The patient is presenting to skilled therapy with a history of worsening mixed urinary incontinence. She presents with decreased hip and abdominal strength and significantly decreased pelvic floor muscle strength (unable to contract on exam). These impairments are contributing to her incontinence and she will benefit from therapy to address strength as well as urge suppression strategies to improve function and reduce incontinence. Plan of Care Interventions Manual Therapy,Neuro Re-education,Patient/ Caregiver Education,Therapeutic Activities, Therapeutic Exercise PT Services Indicated Yes Treatment Frequency and 1 time a week for 5 visits Duration These treatments will address the objective and functional deficits as defined above. The patient will be advanced safely and appropriately in order for the patient to progress towards his/her prior level of function. Additional exercises will be introduced and as well as a comprehensive home exercise program upon discharge, if needed, ?to ensure carryover of functional gains achieved in the clinic. This treatment plan has been reviewed and agreement upon by the patient.
--- NOTE | 2025-01-03 13:41 | OPREHPOC ---
Outpatient Therapy Plan of Care This is a Multidisciplinary Plan of Care that may contain components documented by all disciplines (PT, OT, and ST.) PT Problem 1 PT Problem #1 Knowledge Deficit PT Goal 1 Goal / Goal Update 1. Patient will perform independent HEP 2. Patient will verbalize urge suppression strategies Target Visit 5 Progress Met PT Problem 2 PT Problem #2 Impaired Strength PT Goal 1 Goal / Goal Update 1. Improve pelvic floor strength to 3/5 to reduce incontinence 2. Improve pelvic floor endurance to 10 seconds to reduce incontinence update 01/03/25 1. 1/5 2. not met but able to contract Target Visit 8 Progress Partially Met PT Problem 3 PT Problem #3 Impaired Functional ADLs PT Goal 1 Goal / Goal Update 1. Patient will void no more than 8 times a day 2. Patient will report incontinence no more than 1 time per week 3. Patient will be able to hold 30 minutes before needing to void update 01/03/25 1. voices improvement 2. voices improvement 3. voices improvement, unable to give number Target Visit 8
--- NOTE | 2025-01-03 13:41 | PTOPPROG ---
Assessment and note entered by Luz Elena Corea DPT Evaluation Information Assessment Status Progress ICD-10 Condition Codes (PT) Weakness R53.1,Urge incontinence N39.41,Mixed incontinence N39.46,Stress incontinence N39.3 Subjective Information Pt reports the last 2 nights she has not watched the news before bed and not gotten upset about things on the news, and has not woken up to void or had any incontinence. Does think the incontinence is happening less often than it was. Still getting incontinence with sit to stand at times. Urge incontinence with getting home into her garage is occurring less often as well. Does think she can hold urge to void longer but cannot put a number on it. Assessment PT Clinical Summary The patient has made some progress during therapy. She reports the last 2 nights no incontinence overnight, and does think she is able to hold urge to void longer and is having incontinence less often. She demonstrates improved hip strength and improved pelvic floor strength (but requires verbal cues and compensations for muscle engagement). Due to her progress but continued urgency and incontinence, she will benefit from further therapy to reduce her symptoms and restore full function. Plan of Care Interventions Manual Therapy,Neuro Re-education,Patient/ Caregiver Education,Therapeutic Activities, Therapeutic Exercise PT Services Indicated Yes Treatment Frequency and 1 visit every 2-3 weeks for 3 visits Duration These treatments will address the objective and functional deficits as defined above. The patient will be advanced safely and appropriately in order for the patient to progress towards his/her prior level of function. Additional exercises will be introduced and as well as a comprehensive home exercise program upon discharge, if needed, ?to ensure carryover of functional gains achieved in the clinic. This treatment plan has been reviewed and agreement upon by the patient.
--- NOTE | 2025-04-12 13:05 | PTOPDC ---
Assessment and note entered by Luz Elena Corea DPT Evaluation Information Assessment Status Discharge - Pt Not Present ICD-10 Condition Codes (PT) Weakness R53.1,Urge incontinence N39.41,Mixed incontinence N39.46,Stress incontinence N39.3 Subjective Information - Assessment PT Clinical Summary The patient has not attended therapy since 01/18/25 and her case has been discharged. Plan of Care PT Services Indicated No
== END 2025-02-21 23:59 | disposition home or self-care (01) ==
LOC: ANHPT 13:15
PROVIDERS: PCP Student in an Organized Health Care Education/Training Program; Visit Provider Physician Assistant Medical
DX: N39.46 Mixed incontinence (principal)
CPT/HCPCS: 97112; 97161; 97530